=== PATIENT | female | born 1990 | race Caucasian/White ===

== ENCOUNTER 2021-05-03 11:41 | Emergency (ER) | payer OTHER, SELFPAY ==
--- NOTE | ~2021-05-03 | XR_ITS ---
EXAMINATION: XR chest 2V DATE: 05/03/2021 11:59 INDICATION: Cough. TECHNIQUE: Frontal and lateral views of the chest were obtained. COMPARISON: None. FINDINGS: The chest demonstrates clear lungs without pneumonia, pleural effusion, or pneumothorax. Th e heart size is normal. IMPRESSION: 1. No acute cardiopulmonary disease. Reviewed, dictated and finalized at location B. CE INVESTIGATOR
--- NOTE | 2021-05-03 11:44 | ED.URI ---
HPI - URI/Sore Throat General Chief Complaint: Upper Respiratory Infection Stated Complaint: cough and congestion Time Seen by Provider: 05/03/21 11:44 Source: patient and RN notes reviewed History of Present Illness HPI Narrative: Patient is a 30-year-old female who presents the urgent care with complaints of persistent cough and congestion since testing positive for Covid on April 20. Patient states that the day that she tested positive she was treated with steroids and azithromycin and did complete the medication as prescribed. Patient states that she has been using cough drops and taking Tylenol/ibuprofen for possible fevers at night. Patient denies of any nausea or vomiting. Denies any shortness of breath or chest pain. Patient states that she has since then tested herself for Covid which was negative. Patient's quarantine would have been up on April 30. No other acute complaints. No acute distress noted. Patient aware of the plan of care. Some parts of this dictation were generated by voice recognition software and may contain typographical and/or grammatical inaccuracies. Related Data Allergies Allergy/AdvReac Type Severity Reaction Status Date / Time No Known Allergies Allergy Unverified 05/03/21 11:52 Review of Systems Review of Systems: CONSTITUTIONAL: Denies fever, chills, or sweats. EYES: Denies visual changes, redness, or discharge. ENT: Reports of sinus congestion, rhinorrhea and postnasal drainage CARDIOVASCULAR: Denies chest pain, palpitations, or edema. RESPIRATORY: Reports a persistent harsh cough GASTROINTESTINAL: Denies abdominal pain, nausea, vomiting, or diarrhea. GENITOURINARY: Denies dysuria or hematuria. SKIN: Denies rash or itching. MUSCULOSKELETAL: Denies back pain, joint pain, or myalgia. NEUROLOGIC: Denies headache, numbness, or weakness. All other systems reviewed are negative, except as documented in HPI. PMFSH Comments At the time of my signature, I reviewed and agree with the nursing past medical, surgical, social, and family history. There is no relevant family history pertinent to the patient complaint. Exam Narrative: GENERAL: This is a well-nourished, well-developed patient, in no apparent distress. HEAD: normocephalic, atraumatic. EYES: PERRL. Sclera clear/white. Vision is grossly intact. EARS: External ears normal, auditory canals clear and without drainage, TMs normal without perforation. Hearing grossly intact. NOSE: External nose normal with no obvious nasal discharge, nares without redness, clear rhinorrhea. THROAT: Mucous membranes moist, posterior pharynx clear. Moderate postnasal drainage NECK: Neck supple CARDIOVASCULAR: Regular rate and rhythm without murmurs, gallops, or rubs. RESPIRATORY: Inspiratory wheezes throughout and coarse SKIN: warm, intact with no suspicious lesions or rash, good texture and turgor. NEURO: awake, alert, and oriented to person, place and time. There were no obvious focal neurologic abnormalities. EXTREMITIES: No clubbing, cyanosis, or edema. Course Vital Signs Vital signs: Vital Signs Temperature 99.2 F 05/03/21 11:47 Pulse Rate 115 H 05/03/21 11:47 Respiratory Rate 16 05/03/21 11:47 Blood Pressure 126/74 05/03/21 11:47 Pulse Oximetry 98 05/03/21 11:47 Temperature 99.2 F 05/03/21 11:47 Pulse Rate 115 H 05/03/21 11:47 Respiratory Rate 16 05/03/21 11:47 Blood Pressure 126/74 05/03/21 11:47 Pulse Oximetry 98 05/03/21 11:47 Reviewed MDM - URI/Sore Throat MDM Narrative Medical decision making narrative: Reviewed x-ray results with the patient. She is aware that chest x-ray was negative for any acute abnormality. Post Covid cough can last 6 to 8 weeks. Complete the steroid regimen as prescribed. Be sure to eat and drink with the medication. Use the inhaler as needed for coughing fits, wheezing or chest tightness. If you experience any increase in symptoms associated with severe shortness of breath, fev
[2021-05-03 11:47] VITALS: BP 126/74; PULSE 115; RESP 16; TEMP 37.3; O2SAT 98
== END 2021-05-03 12:23 | disposition home or self-care (01) ==
PROVIDERS: Emergency Provider Nurse Practitioner Family
DX: R05.3 Chronic cough (principal); U09.9 Post COVID-19 condition, unspecified
CPT/HCPCS: 71046; 99213; G0463

== ENCOUNTER 2021-08-28 18:21 | Emergency (ER) | payer OTHER, SELFPAY ==
[2021-08-28 18:24] VITALS: BP 122/76; PULSE 101; RESP 14; TEMP 37.3; O2SAT 97
--- NOTE | 2021-08-28 18:24 | ED.URI ---
HPI - URI/Sore Throat General Chief Complaint: Upper Respiratory Infection Stated Complaint: Cough chest congestion Time Seen by Provider: 08/28/21 18:24 Source: patient and RN notes reviewed History of Present Illness HPI Narrative: Patient is a 31-year-old female presents the urgent care with complaints of cough, congestion, fatigue and body aches. Patient states that it started yesterday. States that she has a history of pleurisy and feels that coming on . Patient denies of any fever or sore throat. Denies of any ill contacts. Patient has been taking allergy medication. No other acute complaints. No acute distress noted. Patient aware of the plan of care. Some parts of this dictation were generated by voice recognition software and may contain typographical and/or grammatical inaccuracies. Related Data Allergies Allergy/AdvReac Type Severity Reaction Status Date / Time No Known Allergies Allergy Verified 08/28/21 18:32 Review of Systems Review of Systems: CONSTITUTIONAL: Denies fever, chills, or sweats. Reports of fatigue EYES: Denies visual changes, redness, or discharge. ENT: Reports of rhinorrhea, congestion CARDIOVASCULAR: Denies chest pain, palpitations, or edema. RESPIRATORY: Reports of nonproductive cough without dyspnea GASTROINTESTINAL: Denies abdominal pain, nausea, vomiting, or diarrhea. GENITOURINARY: Denies dysuria or hematuria. SKIN: Denies rash or itching. MUSCULOSKELETAL: Denies back pain, joint pain. Reports of body aches NEUROLOGIC: Denies headache, numbness, or weakness. All other systems reviewed are negative, except as documented in HPI. PMFSH Comments At the time of my signature, I reviewed and agree with the nursing past medical, surgical, social, and family history. There is no relevant family history pertinent to the patient complaint. Exam Narrative: GENERAL: This is a well-nourished, well-developed patient, in no apparent distress. Appears fatigued HEAD: normocephalic, atraumatic. EYES: PERRL. Sclera clear/white. Vision is grossly intact. EARS: External ears normal, auditory canals clear and without drainage, TMs normal without perforation. Hearing grossly intact. NOSE: External nose normal with no obvious nasal discharge, nares without redness, clear to yellow rhinorrhea. THROAT: Mucous membranes moist, mild erythema noted posterior pharynx with moderate postnasal drainage NECK: Neck supple, non-tender without lymphadenopathy CARDIOVASCULAR: Regular rate and rhythm without murmurs, gallops, or rubs. RESPIRATORY: Dry persistent cough noted on exam. Clear to auscultation. Breath sounds equal bilaterally. No wheezes, rales, or rhonchi. SKIN: warm, intact with no suspicious lesions or rash, good texture and turgor. NEURO: awake, alert, and oriented to person, place and time. There were no obvious focal neurologic abnormalities. EXTREMITIES: No clubbing, cyanosis, or edema. Course Course Level of Care: Express Care Visit Vital Signs Vital signs: Vital Signs Temperature 99.1 F 08/28/21 18:24 Pulse Rate 101 H 08/28/21 18:24 Respiratory Rate 14 08/28/21 18:24 Blood Pressure 122/76 08/28/21 18:24 Pulse Oximetry 97 08/28/21 18:24 Temperature 99.1 F 08/28/21 18:32 Pulse Rate 101 H 08/28/21 18:32 Respiratory Rate 14 08/28/21 18:32 Blood Pressure 122/76 08/28/21 18:32 Pulse Oximetry 97 08/28/21 18:32 Reviewed MDM - URI/Sore Throat MDM Narrative Medical decision making narrative: Reviewed lab results with the patient. She is aware that flu swab was negative. Advised patient to complete the steroid regimen as prescribed. Be sure to eat and drink with medication. Use the inhaler as needed for wheezing and coughing fits. Use Tylenol/ibuprofen as needed. May continue allergy medication in conjunction with Flonase nasal spray and Mucinex. Increase your water intake and rest. Use a humidifier at night and do not sleep with the windows open. Follow-up in the
[2021-08-28 18:32] VITALS: BP 122/76; PULSE 101; RESP 14; TEMP 37.3; O2SAT 97
== END 2021-08-28 18:57 | disposition home or self-care (01) ==
PROVIDERS: Emergency Provider Nurse Practitioner Family
DX: J40 Bronchitis, not specified as acute or chronic (principal); Z86.16 Personal history of COVID-19
CPT/HCPCS: 87804; 99213; G0463

== ENCOUNTER 2021-09-05 11:10 | Emergency (ER) | payer OTHER, SELFPAY ==
--- NOTE | ~2021-09-05 | XR_ITS ---
EXAMINATION: XR chest 2V EXAM DATE: 09/05/2021 11:35 INDICATION: Cough , sob x 1-2 weeks. TECHNIQUE: Frontal and lateral projections of the chest obtained and reviewed. Comparison is made to prior examination from 05/03/2021. FINDINGS: The lungs are clear. There are no pleural effusions. The cardiomediastinal silhouette is within normal limits. There is no pneumothorax suspected. The bones and soft tissues are unremarkab le. IMPRESSION: No acute cardiopulmonary findings. Reviewed, dictated and finalized at location B.
[2021-09-05 11:19] VITALS: BP 138/68; PULSE 98; RESP 20; TEMP 37.1; O2SAT 99
--- NOTE | 2021-09-05 11:20 | ED.URI ---
HPI - URI/Sore Throat General Chief Complaint: Upper Respiratory Infection Stated Complaint: trouble breathing, cough,congestion Source: patient and RN notes reviewed Mode of arrival: ambulatory Limitations: no limitations History of Present Illness MD elicited complaint: cough and sore throat Related Data Allergies Allergy/AdvReac Type Severity Reaction Status Date / Time No Known Allergies Allergy Verified 08/28/21 18:32 Review of Systems Review of Systems: CONSTITUTIONAL: Denies malaise, chills, sweats, or fever. EYES: Denies visual changes, redness, or discharge. ENT: Reports rhinorrhea, congestion, sinus pain, otalgia and sore throat. CARDIOVASCULAR: Denies chest pain, palpitations, or edema. RESPIRATORY: Reports cough. Denies dyspnea. GASTROINTESTINAL: Denies abdominal pain, nausea, vomiting, diarrhea SKIN: Denies rash or itching. MUSCULOSKELETAL: Denies myalgia. NEUROLOGIC: Denies headache. All systems reviewed & are unremarkable except as noted in HPI and below PMFSH Comments At time of signature, agree with nursing past medical, surgical, social and family history. There is no relevant family history pertinent to the presenting complaint Exam Narrative: GENERAL: Well-appearing, well-nourished, and in no acute distress. HEAD: Normocephalic EYES: PERRLA, conjunctivae clear ENT: Nares clear, turbinates edematous and erythematous, clear discharge. Mucous membranes moist. TM pearly richter with dull light reflex bilaterally; no tragal tenderness. Oropharynx not erythematous without lesions. Tonsils not enlarged and without exudate, no drooling, no hoarseness, no trismus, uvula midline. NECK: Supple. No lymphadenopathy CHEST: Clear to auscultation, breath sounds equal. No wheezing, rhonchi, rales, or stridor. No acute respiratory distress, cough noted, conversational dyspnea noted HEART: Regular rate and rhythm. No murmur heard. SKIN: Warm, dry, no rash. NEURO: Alert and oriented x3. PSYCH: Normal mood and affect Course Course Emergency Course: Patient advised to follow-up with primary care provider return guarding ongoing cough, shortness of breath. Patient is aware of diagnosis, understands and agrees to treatment plan. Anticipatory guidance given. Patient agrees to follow-up as directed and is aware of reasons to seek care at the emergency department. Portions of this record may have been created with voice recognition software Level of Care: Express Care Visit Reevaluation(s) Reevaluation #1: Patient reports symptoms improved after breathing treatment she feels less short of breath feels easier. No conversational dyspnea noted Date: 09/05/21 Time: 12:06 Vital Signs Vital signs: Reviewed. MDM - URI/Sore Throat MDM Narrative Medical decision making narrative: Differential diagnosis considered: Novak virus, strep pharyngitis, allergic rhinitis, upper respiratory tract infection, sinusitis, rhinosinusitis, nasopharyngitis. viral pharyngitis, otitis media, otitis externa, pneumonia, bronchitis, viral cough syndrome, viral syndrome, and influenza. Exam findings show no acute concerns or changes; patient is non-toxic appearing and is in no distress. Patient is appropriate for outpatient treatment and follow-up. Lab Data Attestation: I reviewed the patient's lab results. Imaging Data My impression: My x-rays taken Radiologist's impression: EXAMINATION: XR chest 2V EXAM DATE: 09/05/2021 11:35 INDICATION: Cough , sob x 1-2 weeks. TECHNIQUE: Frontal and lateral projections of the chest obtained and reviewed. Comparison is made to prior examination from 05/03/2021. FINDINGS: The lungs are clear. There are no pleural effusions. The cardiomediastinal silhouette is within normal limits. There is no pneumothorax suspected. The bones and soft tissues are unremarkable. IMPRESSION: No acute cardiopulmonary findings. Critical Care Time Critical Care Time Critical Care Time: No Discharge Plan Discharge Clinica
[2021-09-05] MEDS: ALBUTEROL SULFATE NEB 2.5 MG/3 ML INH INHALATION (11:56)
[2021-09-05] MEDS: IPRATROPIUM BR 0.02% INH SOLN 0.5 MG/2.5 ML VIAL INHALATION (11:56)
== END 2021-09-05 12:27 | disposition home or self-care (01) ==
PROVIDERS: Emergency Provider Nurse Practitioner
DX: R05.9 Cough, unspecified (principal); R06.02 Shortness of breath; Z86.16 Personal history of COVID-19
CPT/HCPCS: 71046; 94640; 99213; G0463

== ENCOUNTER 2021-11-01 08:21 | Emergency (ER) | payer OTHER, SELFPAY ==
--- NOTE | 2021-11-01 08:25 | ED.NAVMDI ---
HPI - Nausea/Vomiting/Diarrhea General Chief complaint: Nausea/Vomiting/Diarrhea Stated complaint: diahrrea nausea Time Seen by Provider: 11/01/21 08:25 Mode of arrival: ambulatory Limitations: no limitations History of Present Illness HPI Narrative: Patient is a 31-year-old female who presents the urgent care with complaints of diarrhea, nausea and vomiting. Patient states the diarrhea started Saturday after she ate pulled pork nachos at around 2 PM. Patient states she has had several loose stools in last 24 hours. States that she did not vomit until this morning has vomited twice. Patient still complains of nausea but denies of abdominal pain. States that her main concern is that she called off work and needs a work note. Patient does not get anything [id number] for her symptoms. Denies any fever. No other acute complaints. No acute distress noted. Patient aware of the plan of care. Some parts of this dictation were generated by voice recognition software and may contain typographical and/or grammatical inaccuracies. Related Data Allergies Allergy/AdvReac Type Severity Reaction Status Date / Time No Known Allergies Allergy Verified 11/01/21 08:27 Review of Systems Review of Systems: CONSTITUTIONAL: Denies fever, chills, or sweats. EYES: Denies visual changes, redness, or discharge. ENT: Denies rhinorrhea, congestion, sore throat, or otalgia. CARDIOVASCULAR: Denies chest pain, palpitations, or edema. RESPIRATORY: Denies cough or dyspnea. GASTROINTESTINAL: Reports of nausea, vomiting and diarrhea GENITOURINARY: Denies dysuria or hematuria. SKIN: Denies rash or itching. MUSCULOSKELETAL: Denies back pain, joint pain, or myalgia. NEUROLOGIC: Denies headache, numbness, or weakness. All other systems reviewed are negative, except as documented in HPI. PMFSH Comments At the time of my signature, I reviewed and agree with the nursing past medical, surgical, social, and family history. There is no relevant family history pertinent to the patient complaint. Exam Narrative: GENERAL: This is a well-nourished, well-developed patient, in no apparent distress. HEAD: normocephalic, atraumatic. EYES: PERRL. Sclera clear/white. Vision is grossly intact. EARS: External ears normal NOSE: External nose normal with no obvious nasal discharge, nares without redness, no rhinorrhea. THROAT: Mucous membranes moist NECK: Neck supple CARDIOVASCULAR: Regular rate and rhythm without murmurs, gallops, or rubs. RESPIRATORY: Clear to auscultation. Breath sounds equal bilaterally. No wheezes, rales, or rhonchi. GASTROINTESTINAL: Abdomen soft, non-tender, nondistended. Bowel sounds are active. No guarding. SKIN: warm, intact with no suspicious lesions or rash, good texture and turgor. NEURO: awake, alert, and oriented to person, place and time. There were no obvious focal neurologic abnormalities. EXTREMITIES: No clubbing, cyanosis, or edema. BACK: Negative CVA tenderness Course Course Level of Care: Express Care Visit Vital Signs Vital signs: Vital Signs Temperature 98.9 F 11/01/21 08:26 Pulse Rate 103 H 11/01/21 08:26 Respiratory Rate 16 11/01/21 08:26 Blood Pressure 118/81 11/01/21 08:26 Pulse Oximetry 98 11/01/21 08:26 Oxygen Delivery Room Air 11/01/21 08:26 Temperature 98.9 F 11/01/21 08:26 Pulse Rate 103 H 11/01/21 08:26 Respiratory Rate 16 11/01/21 08:26 Blood Pressure 118/81 11/01/21 08:26 Pulse Oximetry 98 11/01/21 08:26 Oxygen Delivery Room Air 11/01/21 08:26 Reviewed MDM - Nausea/Vomiting/Diarrhea MDM Narrative Medical decision making narrative: Advised patient to use Pepto [id number] for upset stomach. Use the Zofran as needed for nausea. Do not use excessive amounts of Imodium or stool softeners. Eat a bland diet for the next 2 to 3 days avoiding greasy, fried or fatty foods. If you develop any increase in symptoms associated persistent nausea/vomiting in conjunction
[2021-11-01 08:26] VITALS: BP 118/81; PULSE 103; RESP 16; TEMP 37.2; O2SAT 98
== END 2021-11-01 08:52 | disposition home or self-care (01) ==
PROVIDERS: Emergency Provider Nurse Practitioner Family
DX: K52.9 Noninfective gastroenteritis and colitis, unspecified (principal)
CPT/HCPCS: 99211; G0463

== ENCOUNTER 2022-05-05 12:25 | Emergency (ER) | payer SELFPAY ==
--- NOTE | ~2022-05-05 | XR_ITS ---
EXAM: XR foot LT min 3V DATE: 05/05/2022 14:54 HISTORY: NKI, DORSAL SWELLING, POSS PAIN BUT PT HAS NERVE DAMAGE . COMPARISON: None available. FINDINGS: Normal mineralization. No fracture or dislocation. No lytic or blastic lesion. Joint space s are maintained. Mild Achilles and plantar enthesopathy. No erosion or periosteal change. Soft tissu es within normal limits. IMPRESSION: No acute osseous finding in the left foot. Reviewed, dictated and finalized at location K. CONSULTING DIRECTOR
[2022-05-05 12:41] VITALS: BP 126/75; PULSE 88; RESP 16; TEMP 36.8; O2SAT 100
--- NOTE | 2022-05-05 14:53 | PC.NURSE ---
PT DECLINED WHEELCHAIR AND ICE FOR COMFORT
--- NOTE | 2022-05-05 15:11 | ED.LOWEXIN ---
HPI - Extremity Injury (Lower) General Chief Complaint: Extremity Injury, Lower Stated Complaint: left foot swollen Time Seen by Provider: 05/05/22 15:10 Source: RN notes reviewed and old records reviewed Mode of arrival: ambulatory Limitations: no limitations History of Present Illness HPI Narrative: 31-year-old female who presents to [facility] with no complaints of injuries to her left foot but swelling for one week duration to dorsal and medial aspect of her foot. Patient reports that she is on her feet 10 hours daily 4 days a week with no known injury to her left foot. Patient reports that she has had 3 back surgeries and she does have some nerve injury to her left foot. Patient denies any acute pain, has used Ibuprofen and also has used ice to her left foot. MD complaint: other (swelling to dorsal and medial lef foot) Onset (ago): week(s) (1) Treatments prior to arrival: cold therapy and NSAIDS Related Data Home Medications Medication Instructions Recorded Confirmed fluoxetine 20 mg capsule 20 mg PO DAILY 05/05/22 05/05/22 Allergies Allergy/AdvReac Type Severity Reaction Status Date / Time No Known Allergies Allergy Verified 05/05/22 14:18 Review of Systems Review of Systems: CONSTITUTIONAL: Denies fever, chills, or sweats. CARDIOVASCULAR: Denies chest pain, palpitations, or edema. RESPIRATORY: Denies cough or dyspnea. SKIN: Denies rash or itching. Denies laceration or abrasions MUSCULOSKELETAL: Reports swelling to the left dorsal and medial aspect of her left foot with no known injury NEUROLOGIC: Denies numbness, or weakness. All systems reviewed & are unremarkable except as noted in HPI and below PMFSH Past Medical History Medical History (Updated 05/10/22 @ 14:21 by Anum Polanco NP) Ankle fracture, left Anxiety and depression Closed arm fracture COVID-19 04/30 Fractured coccyx Shoulder fracture, right Surgical History Surgical History (Updated 05/10/22 @ 14:13 by Anum Polanco NP) History of lumbar surgery x3 History of salpingectomy Social History Social History (Updated 05/10/22 @ 14:08 by Anum Polanco NP) Smoking packs per day: 1 Smoking cigarettes per day: 20.0 Years smoked: 10 Smoking pack-years: 10.00 Smoking status: Current every day smoker Gender identity (if verbalized by the patient): Female Comments At time of signature, agree with nursing past medical, surgical, social and family history. There is no relevant family history pertinent to the presenting complaint Exam Narrative: GENERAL: Well-appearing, well-nourished, and in no acute distress. HEAD: Normocephalic, atraumatic. EYES: PERRLA and EOMI. ENT: Nares clear, no rhinorrhea or epistaxis. Mucous membranes moist. NECK: Supple.no lymphadenopathy CHEST: Clear to auscultation. No respiratory distress. HEART: Regular rate and rhythm. No murmur heard. Normal peripheral pulses. ABDOMEN: Soft, nontender, nondistended, normal active bowel sounds. EXTREMITIES: Normal range of motion. edema noted to left dorsal and medial foot with no known injury, full ROM of left foot with good pulses and brisk capillary refill. SKIN: Warm, dry, no rash. NEURO: No focal deficits. Alert and oriented x3. Course Course Emergency Course: Patient is aware of diagnosis, understands and agrees to treatment plan. Anticipatory guidance given. Patient agrees to follow-up as directed and is aware of reasons to seek care at the emergency department. Portions of this record may have been created with voice recognition software Level of Care: Express Care Visit Vital Signs Vital signs: Vital Signs Temperature 36.8 C 05/05/22 12:41 Pulse Rate 88 05/05/22 12:41 Respiratory Rate 16 05/05/22 12:41 Blood Pressure 126/75 05/05/22 12:41 Pulse Oximetry 100 05/05/22 12:41 Oxygen Delivery Room Air 05/05/22 12:41 Temperature 36.8 C 05/05/22 12:41 Pulse Rate 88 05/05/22 12:41 Respiratory Rate 16
== END 2022-05-05 15:30 | disposition home or self-care (01) ==
PROVIDERS: Emergency Provider Registered Nurse
DX: M79.89 Other specified soft tissue disorders (principal); M79.672 Pain in left foot
CPT/HCPCS: 73630; 99213; G0463

== ENCOUNTER 2024-02-11 18:51 | Emergency (ER) | payer OTHER, SELFPAY ==
[2024-02-11 19:03] VITALS: PULSE 89; RESP 18; TEMP 36.2; O2SAT 100
--- NOTE | 2024-02-15 18:06 | ED.EAR ---
HPI - Ear Problem General Chief complaint: Ear Stated complaint: RT Ear Pain Time Seen by Provider: 02/11/24 19:42 Source: patient, RN notes reviewed and old records reviewed Mode of arrival: ambulatory Limitations: no limitations History of Present Illness HPI Narrative: 33-year-old female to [facility] for complaint of right ear pain for 2 weeks with recent right facial pain. Patient denies attempting to treat at home. Patient denies sore throat, headache, fever, sinus pain, nasal congestion, GI complaints, Shortness of breath, difficulty swallowing. Patient able to tolerate fluids by mouth. Patient resting in exam room uncomfortably in no acute distress. Respirations even and unlabored. Related Data Allergies Allergy/AdvReac Type Severity Reaction Status Date / Time No Known Allergies Allergy Verified 05/05/22 14:18 Review of Systems Review of Systems: All systems reviewed & are unremarkable except as noted in HPI and below Constitutional: Constitutional: Reports no additional constitutional complaints Eyes: Eyes: Reports no additional eye complaints ENT: Reports as per HPI, Reports otalgia ( Right) and Reports facial pain ( right) Cardiovascular: Cardiovascular: Reports no additional cardiovascular complaints, Denies chest pain and Denies dyspnea Respiratory: Respiratory: Reports no additional respiratory complaints, Denies cough and Denies dyspnea Musculoskeletal: Musculoskeletal: Reports no additional musculoskeletal complaints Neurologic: Reports system reviewed and no additional complaints, except as documented Psychiatric: Psychiatric: Reports no additional psychiatric complaints PMFSH Past Medical History Medical History Ankle fracture, left Anxiety and depression Closed arm fracture COVID-19 04/30 Fractured coccyx Shoulder fracture, right Surgical History Surgical History History of lumbar surgery x3 History of salpingectomy Social History Social History Smoking packs per day: 1 Smoking cigarettes per day: 20.0 Years smoked: 10 Smoking pack-years: 10.00 Smoking status: Current every day smoker Gender identity (if verbalized by the patient): Female Comments At the time of my signature, I reviewed and agree with the nursing past medical, surgical, social, and family history. There is no relevant family history pertinent to the patient complaint. Exam Const: General: cooperative, healthy appearing, no acute distress, well developed, alert, uncomfortable, well groomed and well nourished Nutritional Appearance: well nourished Orientation/consciousness: patient oriented x3 Limitations: no limitations HENMT: Head: normal to inspection Ears: external ears normal, Abnormal EAC present erythema on the right and EAC tenderness on the right and TM abnormal bulging on the right, erythematous on the right and with fluid behind the TM on the right Face/Nose/Sinus: Normal external nose present, Normal nares present, No erythema and No edema Face and sinus: normal facial exam, no erythema and no edema Mouth: Yes Normal oral and palatal mucosa present Eyes: General: appearance normal, both eyes and all related structures Neck: Neck: normal visual inspection, full ROM and no meningeal signs Lymphatic: no lymphadenopathy noted and no lymphedema noted Chest: Chest palpation & inspection: normal inspection of the chest Resp: Effort & Inspection: normal respiratory effort and able to speak in complete sentences Cardio: Jugular venous distension: no JVD Rate: regular rate Rhythm: regular rhythm Back/Spine/Pelvis: Cervical Spine: cervical ROM normal Skin: General skin exam: normal color, no rashes or lesions noted and turgor normal Neuro: General: patient oriented x3, gait normal, moves all extremitie
== END 2024-02-11 19:53 | disposition home or self-care (01) ==
PROVIDERS: Emergency Provider Nurse Practitioner Family
DX: H66.91 Otitis media, unspecified, right ear (principal); F17.210 Nicotine dependence, cigarettes, uncomplicated; Z86.16 Personal history of COVID-19
CPT/HCPCS: 99213; G0463

== ENCOUNTER 2024-03-28 08:55 | Emergency (ER) | payer OTHER, SELFPAY ==
[2024-03-28 09:16] VITALS: BP 104/78; PULSE 95; RESP 16; TEMP 36.6; O2SAT 99
--- NOTE | 2024-03-28 09:36 | ED.URI ---
HPI - URI/Sore Throat General Chief Complaint: Ear Stated Complaint: Ear Pain Time Seen by Provider: 03/28/24 09:30 Source: patient and RN notes reviewed Mode of arrival: ambulatory Limitations: no limitations History of Present Illness HPI Narrative: Patient presents today complaining of severe right ear pain the past 2-3 hours with decreased hearing. Denies drainage. She has tried ibuprofen without relief. States she already take Sudafed on a semi-regular basis. Reports that 1 of her doctors has her on a steroid nasal spray that she does not take consistently. Denies any additional symptoms Related Data Allergies Allergy/AdvReac Type Severity Reaction Status Date / Time No Known Allergies Allergy Verified 03/12/24 09:13 Review of Systems Review of Systems: CONSTITUTIONAL: Denies body aches, fever, chills, or sweats. EYES: Denies visual changes, redness, or discharge. ENT: Denies rhinorrhea, congestion, sore throat. + right ear pain, decreased hearing CARDIOVASCULAR: Denies chest pain, palpitations, or edema. RESPIRATORY: Denies cough or dyspnea. GASTROINTESTINAL: Denies abdominal pain, nausea, vomiting, or diarrhea. GENITOURINARY: Denies dysuria or hematuria. SKIN: Denies rash, itching, or wounds. MUSCULOSKELETAL: Denies back pain, joint pain, or myalgia. NEUROLOGIC: Denies headache, numbness, tingling, or weakness. PSYCH: Denies depression or anxiety. [facility] Past Medical History Medical History Ankle fracture, left Anxiety and depression Closed arm fracture COVID-04/30 Fractured coccyx Shoulder fracture, right Surgical History Surgical History History of lumbar surgery x3 History of salpingectomy Social History Social History Smoking packs per day: 1 Smoking cigarettes per day: 20.0 Years smoked: 10 Smoking pack-years: 10.00 Smoking status: Current every day smoker Alcohol intake: current Substance use: never Gender identity (if verbalized by the patient): Female Comments At time of signature, I have reviewed and agree with nursing past medical, surgical, social and family history unless otherwise noted. Please see nursing chart for further information. There is no relevant family history pertinent to the presenting complaint Exam Narrative: GENERAL: Well-appearing, well-nourished, and tearful, [id number] pain distress HEAD: Normocephalic, atraumatic. EYES: EOMI. PERRL. No redness or drainage. Conjunctivae normal. ENT: Mucous membranes pink and moist. Rhinorrhea due to crying. Left TM and external ear normal. Right TM and canal normal.. NECK: Normal AROM. Supple. No lymphadenopathy. CHEST: No respiratory distress. MUSCULOSKELETAL: No bony tenderness. EXTREMITIES: Normal range of motion. No edema. SKIN: Warm, dry, no rash. Capillary refill normal. Normal skin turgor. NEURO: No focal deficits. Alert and oriented x3. Gait steady. PSYCH: Normal affect. No signs of depression or anxiety. Course Course Level of Care: Express Care Visit Vital Signs Vital signs: Vital Signs Temperature 98 F 03/28/24 09:16 Pulse Rate 95 03/28/24 09:16 Respiratory Rate 16 03/28/24 09:16 Blood Pressure 104/78 03/28/24 09:16 Pulse Oximetry 99 03/28/24 09:16 Temperature 98 F 03/28/24 09:16 Pulse Rate 95 03/28/24 09:16 Respiratory Rate 16 03/28/24 09:16 Blood Pressure 104/78 03/28/24 09:16 Pulse Oximetry 99 03/28/24 09:16 Reviewed MDM - URI/Sore Throat MDM Narrative Medical decision making narrative: Patient's right ear exam is grossly normal, but she is objectively in pain and holding her right ear. Will start her on amoxicillin and ciprodex to see if either are helpful. Recommend ENT follow up if symptoms persist. Anticipatory guidance given
== END 2024-03-28 09:47 | disposition home or self-care (01) ==
PROVIDERS: Emergency Provider Nurse Practitioner; PCP Nurse Practitioner Family
DX: H92.01 Otalgia, right ear (principal); F17.210 Nicotine dependence, cigarettes, uncomplicated; Z86.16 Personal history of COVID-19
CPT/HCPCS: 99213; G0463

== ENCOUNTER 2024-04-13 10:44 | Outpatient (CLI) | payer OTHER, SELFPAY ==
--- NOTE | ~2024-04-13 | XR_ITS ---
Right Shoulder Technique: AP and scapular Y views were obtained. Clinical History: Pain Findings: No fracture or dislocation is seen. Osseous alignment is anatomic. The glenohumeral and acr omioclavicular joint spaces are preserved. Soft tissues are unremarkable. Impression: Unremarkable right shoulder radiographs. Reviewed, dictated and finalized at [facility]. [facility] Impression: Unremarkable right shoulder radiographs.
== END 2024-04-13 10:45 | disposition home or self-care (01) ==
PROVIDERS: PCP Nurse Practitioner Family; Visit Provider Nurse Practitioner Family
DX: M25.511 Pain in right shoulder (principal)
CPT/HCPCS: 73030

== ENCOUNTER 2024-04-20 08:02 | Outpatient (RCR) | payer OTHER, SELFPAY ==
--- NOTE | 2024-04-20 09:00 | PTOPEVAL1 ---
Assessment and note entered by Brendan Banda Evaluation Information Assessment Status Evaluation ICD-10 Condition Codes (PT) M25.511 Onset 04/04/24 Subjective Information Pt. reports that she has had shoulder stiffness since she broke her shoulder in 2019. She states that she did not have surgery due to Covid. She reports she developed pain about 2 weeks ago. She describes pain on the top of the right shoulder. She states that she does have frequent popping in the shoulder. She states that she cannot lift her arm higher than her shoulder and has pain reaching behind her back. She states that she cannot lay on the right shoulder without a pain increase. She reports that she has trouble straightening the arm. She reports that her goal is to decrease her shoulder pain and improve her mobility. Reported Pain Level Pain Score 0: Self Report Assessment PT Clinical Summary Pt. is a 33 year old female who enters the clinic with right shoulder pain. Objective findings are consistent with impingement syndrome on this date. She currently presents with impaired ROM, impaired strength and pain with shoulder movement. Continued skilled PT is indicated in order to improve these areas to allow the pt. to be able to complete all overhead activities and IADL's with less pain. Plan of Care Interventions Electrical Stimulation,Hot Pack/Cold Pack,Manual Therapy,Neuro Re-education,Patient/Caregiver Educati,Therapeutic Activities,Therapeutic Exercise PT Services Indicated Yes Treatment Frequency and 2x/week x 10 visits Duration These treatments will address the objective and functional deficits as defined above. The patient will be advanced safely and appropriately in order for the patient to progress towards his/her prior level of function. Additional exercises will be introduced and as well as a comprehensive home exercise program upon discharge, if needed, ?to ensure carryover of functional gains achieved in the clinic. This treatment plan has been reviewed and agreement upon by the patient.
--- NOTE | 2024-05-06 14:02 | PCPTNOTE ---
Patient did not show up for scheduled appointment this date.
--- NOTE | 2024-06-12 15:13 | OPREHPOC ---
Outpatient Therapy Plan of Care This is a Multidisciplinary Plan of Care that may contain components documented by all disciplines (PT, OT, and ST.) PT Problem 1 PT Problem #1 Knowledge Deficit PT Goal 1 Goal / Goal Update Pt. will be independent with a HEP addressing postural awareness and strength Target Visit 2 PT Problem 2 PT Problem #2 Impaired Range of Motion PT Goal 1 Goal / Goal Update Pt. will demonstrate 160 degrees active right shoulder flexion Pt. will reach to the mid thoracic region with the right u.e. for combined IR and extension Pt. will be able to lift 5# object overhead to 160 degrees flexion with the right u.e. for 10 reps without pain. PT Problem 3 PT Problem #3 Impaired Strength PT Goal 1 Goal / Goal Update Pt. will demonstrate 5/5 gross proximal right u.e. strength. Target Visit 10 PT Problem 4 PT Problem #4 Impaired Functional Mobility PT Goal 1 Goal / Goal Update Pt. will be able to sleep through the night without pain disturance. Target Visit 10
--- NOTE | 2024-06-12 15:13 | PTOPDC ---
Assessment and note entered by JT File, PT Evaluation Information Assessment Status Discharge - Pt Not Present ICD-10 Condition Codes (PT) Pain in right shoulder M25.511 Onset 04/04/24 Subjective Information Pt. reports that she has had shoulder stiffness since she broke her shoulder in 2019. She states that she did not have surgery due to Covid. She reports she developed pain about 2 weeks ago. She describes pain on the top of the right shoulder. She states that she does have frequent popping in the shoulder. She states that she cannot lift her arm higher than her shoulder and has pain reaching behind her back. She states that she cannot lay on the right shoulder without a pain increase. She reports that she has trouble straightening the arm. She reports that her goal is to decrease her shoulder pain and improve her mobility. Assessment PT Clinical Summary mrs. travis has not been to skilled PT in over a month. she has been called several times with no return calls to finish out her POC. she will be DC 'd from skilled PT services today, and all progress towards goals is available on her most recent evaluation/note. Plan of Care PT Services Indicated Yes
== END 2024-05-05 11:00 | disposition home or self-care (01) ==
LOC: CHSPT 08:02
PROVIDERS: Visit Provider Nurse Practitioner Family
DX: M25.511 Pain in right shoulder (principal)
CPT/HCPCS: 97110; 97161

== ENCOUNTER 2025-01-22 12:35 | Outpatient (CLI) | payer OTHER, SELFPAY ==
--- OUTSIDE RECORDS SUMMARY | 2025-01-22 12:40 | XMS_ITS | Clinical Summary ---
Author Organization [facility] Physician Office Building [address] [place] [id number] Care Team Providers Care Computer Information Systems Instructor Name Role Phone Alaina Teague DO Unavailable [phone] Allergies No known active allergies Medications ondansetron ODT (ZOFRAN-ODT) 4 mg disintegrating tablet DISSOLVE 1 TABLET ON THE TONGUE EVERY 8 HOURS 2 Active FLUoxetine (PROzac) 20 mg capsuleIndications: Mild episode of recurrent major depressive disorder,Generalize d anxiety disorder TAKE 1 CAPSULE BY MOUTH EVERY DAY 90 capsule 2 Active nicotine (NICODERM CQ) 14 mgIndications:Smoki ng Cessation Place 1 patch on the skin daily Active Active Problems Problem Noted Date Diagnosed Date Preventative health care 10/16/2022 Assessment & Plan (10/16/2022 12:56 PM CDT): - Acute concerns: see plan under A/P for new/acute conditions - Mental health: stable, has known anxiety and depression, on medications - Dental health: Recommend regular dental care and cleaning. Discussed importance of regular tooth brushing, flossing, and dental visits. - Nutrition: Recommend moderation in sodium/caffeine intake, saturated fat and cholesterol, caloric balance, sufficient intake of fresh fruits, vegetables - Exercise: Recommend regular physical exercise - Immunizations: Age and sex appropriate immunizations reviewed and offered - Cervical Cancer screening: up to date, follows with Dr. 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 Clinical correlation is recommended. Referral placed to hand surgery Assessment & Plan (01/21/2023 11:08 AM CDT): - subacute, reports over left hand - no neck pain with intact shoulder ROM - examination on last visit was inconclusive - differential includes carpal tunnel syndrome, ulnar tunnel syndrome and less likely cervical radiculopathy - recommend wearing a wrist brace over night x 30 days on last visit which she did for 2 weeks and discontinues - obtained lab work as well as shown below - obtain EMG/NCV for further evaluation Lab Results Component Value Date VITB12 440 12/17/2022 Lab Results Component Value Date FOLATE 11.7 12/17/2022 Lab Results Component Value Date TSH 0.54 12/17/2022 Assessment & Plan (10/16/2022 12:58 PM CDT): - subacute, reports over left hand - examination is not specific - recommend wearing a wrist brace over night x 30 days - no neck pain with intact shoulder ROM - differential includes carpal tunnel syndrome, ulnar tunnel syndrome and less likely cervical radiculopathy - obtain lab work as well Mild episode of recurrent major depressive disor al 01/15/2022 Assessment & Plan (10/16/2022 12:55 PM CDT): - chronic, controlled - has anxiety and coexisting depression history - currently on Fluoxetine 20 mg daily - continue current therapy Assessment & Plan (01/15/2022 5:19 PM CDT): Trial of fluoxetine. Close follow-up recommended. Strongly encouraged counseling. If you feel you will be a harm to herself or to others please call 911 and go to nearest emergency room. Generalized anxiety disorder 01/15/2022 Assessment & Plan (01/21/2023 10:40 AM CDT): - chronic, controlled - has anxiety and coexisting depression history - currently on Fluoxetine 20 mg daily - continue current therapy Assessment & Plan (10/16/2022 12:55 PM CDT): - chronic, controlled - has anxiety and coexisting depression history - currently on Fluoxetine 20 mg daily - continue current therapy Assessment & Plan (01/15/2022 5:19 PM CDT): Duloxetine started, will also give a trial of lorazepam for temporary use for her anxiety disorder. Strongly encouraged counseling. Close follow-up recommended. Thai's neuroma of left foot 06/28/2021 Overview (06/28/2021): new, not at goal, discussed treatment options, first line would be metatarsal pads and if not we can schedule her for steroid injections Tobacco use disorder 12/28/2020 Assessment & Plan (01/21/2023 10:44 AM CDT): Social History Tobacco Use Smoking Status Every Day Packs/day: 1.00 Years: 14.00 Pack years: 14.00 Types: Cigarettes Start date: 06/10/2006 Smokeless Tobacco Never - chronic condition, not at goal but improved - assessed patient readiness for tobacco smoking cessation - discussed the importance of tobacco smoking cessation with goal of being tobacco free - doing nicotine patch and has cut it down by 1/2 --> next refill should be 14 mg patch, keep it up Assessment & Plan (10/16/2022 10:51 AM CDT): Social History Tobacco Use Smoking Status Every Day Packs/day: 1.00 Years: 14.00 Pack years: 14.00 Types: Cigarettes Start date: 06/10/2006 Smokeless Tobacco Never Vaping Use Vaping Status Never Used - chronic condition, not at goal - assessed patient readiness for tobacco smoking cessation - discussed the importance of tobacco smoking cessation with goal of being tobacco free Assessment & Plan (12/28/2020 3:17 PM CDT): Social History Tobacco Use Smoking Status Current Every Day Smoker Packs/day: 1.00 Years: 14.00 Pack years: 14.00 Types: Cigarettes Start date: 06/10/2006 Smokeless Tobacco Never Used History of seizures as a child 12/28/2020 Assessment & Plan (12/28/2020 3:18 PM CDT): - had tehm when she was young - when she was 14 and 15 - last sizure - tested and after all was studies were negative, told it was anxiety and mental health problem History of depression 12/28/2020 Assessment & Plan (12/28/2020 3:19 PM CDT): - in complete remission - used to be on medication, off for several years History of arthrodesis 03/13/2011 Bulging lumbar disc 01/10/2011 Resolved Problems Problem Noted Date Diagnosed Date Resolved Date Pelvic mass 12/29/2020 10/16/2022 Overview (12/29/2020): Noted on CT 12/29/2020: IMPRESSION: Large cystic pelvic mass. Surgical consultation recommended. There is mass effect on the sigmoid colon. Closed fracture of left distal radius 07/21/2020 10/16/2022 Immunizations Immunization Administration Dates Next Due Influenza, Unspecified 10/16/2022(Deferr ed: Patient Refused),03/10/2021(Deferred: Patient Refused),03/10/2020(Deferred: Patient Refused),03/10/2020(Deferred: Patient Refused) Surgical History Surgery Date Site/Laterality Comments BACK SURGERY DIAGNOSTIC LAPAROSCOPY Medical History Medical History Date Comments No pertinent past medical history Family History Medical History Relation Name Comments No Known Problems Father No Known Problems Mother Relation Name Status Comments Father Alive Mother Alive Social History Tobacco Use Types Packs/Day Years Used Date Smoking Tobacco: Every Day Cigarettes 1 18.6 Started: 06/10/2006 Smokeless Tobacco: Never Tobacco Cessation:Ready to Q uit: No; Counseling Given: Yes AUDIT-C Answer Date Recorded Q1: How often do you have a drink containing alc ohol? 2-4 times a month 02/09/2021 Q2: How many drinks containi ng alcohol do you have on a typical day when you are drinking? 5 or 6 02/09/2021 Frequency of Binge Drinking Not on file 07/2020 PHQ-2 Answer Date Recorded PHQ-2 Total Score (If total score is 3 or more points, staff should administer the PHQ-9) 0 01/21/2023 Comments No Sex and Gender Information Value Date Recorded Sex Assigned at Not on file Legal Sex Female 10:37 AM RETAIL SOLAR ADVISOR Gender Identity Female 02/14/2021 10:37 PM CDT Sexual Orientation Straight 02/14/2021 10 :37 PM CDT Occupation Industry Job Start Date Job End Date Not on file Not on file Not on file Not on file Obstetrics History Last Filed Vital Signs Vital Sign Reading Time Taken Comments Blood Pressure 108/82 01/21/2023 10:21 AM CDT Pulse 84 01/21/2023 10:21 AM CDT Temperature 36.8 C (98.2 F) 10/16/2022 10:22 AM CDT Respiratory Rate 14 01/09/2022 2:13 PM CDT Oxygen Saturation 98% 01/21/2023 10:21 AM CDT Inhaled Oxygen Concentration - - Weight 66.2 kg (146 lb) 01/21/2023 10:21 AM CDT Height 165.1 cm (5' 5) 01/21/2023 10:21 AM CDT Body Mass Index 24.3 01/21/2023 10:21 AM CDT Plan of Treatment Health Maintenance Due Date Last Done Comments Hepatitis C Screening 1990 DTaP/Tdap/Td Vaccine (1 - Tdap) 2001 Varicella Vaccines (1 of 2 - 13+ 2-dose series) 2003 Hepatitis B Screening 2008 Pneumococcal vaccine <65 (1 of 2 - PCV) 2009 HPV Vaccines (1 - 3-dose SCD M series) 2017 Cervical Cancer Screening 01/11/2022 01/11/2021 Regular Well Visit/Exam 18-64 10/17/2023 10/16/2022 Depression Screening 01/22/2024 01/21/2023, 10/16/2022, 01/09/2022, Additional history exists Influenza Vaccine (#1) 2025 Procedures Procedure Name Priority Date/Time Associated Diagnosis Comments THINPREP IMAGING PAP AND HPV MRNA E6/E7, CHLAMYDIA/N.GONORRH OEAE Routine 01/11/2021 11:28 AM CDT from Last 3 Months or Most Recently Relevant to Health Maintenance Results * (ABNORMAL) ThinPrep Imaging Pap and HPV mRNA E6/E7, Chlamydia/N.Gonorrhoeae (01/11/2021 11:28 AM CDT) CLINICAL INFORMATION: [facility] Comment:SCREENING LMP [facility] Comment:DECEMBER 30 Previous Pap [facility] Comment:INFORMATION NOT PROV IDED Prev. Bx [facility] Comment:INFORMATION NOT PROV IDED SOURCE: [facility] Comment:Cervix, Endocervix Pap, specimen adequacy [facility] Comment: Satisfactory for evaluation. Endocervical/transformation zone component present. HPV interp [facility] Comment:Negative for intraep ithelial lesion or malignancy. COMMENTS [facility] Comment: This Pap test has been evaluated with computer assisted technology. Sales And Service Change Leader [facility] Comment: BEF, CT(ASCP) CT screening location: [place] [address] [place] [address] Review hardener helper [facility] Comment: TMK, CT(ASCP) CT screening location: [place] [address] [address]URISIO Barros [facility] Comment [facility] Comment: EXPLANATORY NOTE: The Pap is a screening test for cervical cancer. It is not a diagnostic test and is subject to false negative and false positive results. It is most reliable when a satisfactory sample, regularly obtained, is submitted with relevant clinical findings and history, and when the Pap result is evaluated along with historic and current clinical information. Human papillomavirus RNA, High Risk E6/E7 Detected(A) Not Detected [facility] Comment: Methodology: Secretary Book Keeper-Mediated Amplification This assay detects E6/E7 viral messenger RNA (mRNA) from 14 high-risk HPV types (16,18,31,33,35,39,45,51,52,56,58,59,66,68). The analytical performance characteristics of this assay have been determined by [facility]. The modifications have not been cleared or approved by the FDA. This assay has been validated pursuant to the CLIA regulations and is used for clinical purposes. For additional information, please refer to http://education.Theralogix.Activation Life/faq/HPQ272h0 (This link if provided for information/ educational purposes only.) C. trachomatis RNA NOT DETECTED NOT DETECTED [facility] N. gonorrhoeae RNA NOT DETECTED NOT DETECTED [facility] Comment [facility] Comment: The analytical performance characteristics of this assay, when used to test SurePath(TM) specimens have been determined by [facility]. The modifications have not been cleared or approved by the FDA. This assay has been validated pursuant to the CLIA regulations and is used for clinical purposes. For additional information, please refer to https://education.KickSport/faq/ETV355 (This link is being provided for information/ educational purposes only.) 01/11/2021 11:2 8 AM CDT 01/12/2021 5:40 AM CDT Alaina Teague DO LAB PATHOLOGY ORDERABLE S Final Result Performing Organization Address City/State/[facility] Co de Phone Number LUC[facility] [address] [place] [address] [facility] [address] [place] [address] from Last 3 Months or Most Recently Relevant to Health Maintenance Insurance [facility] Care Teams Computer Information Systems Instructor Relationship Specialty Start Date End Date Alaina Teague DO [address] [id number] Consulting Physician Obstetrics and Gynecology 02/08/21
--- OUTSIDE RECORDS SUMMARY | 2025-01-22 12:40 | XMS_ITS | Clinical Summary ---
Author Organization [facility] Address [address] [place] [address] Phone Care Team Providers Care Manager Express Name Role Phone Kristopher Scmhitt MD Primary Care Provider Allergies No known active allergies Medications FLUoxetine (PROzac) 20 MG Capsule Take 1 Capsule by mouth daily. 04/06/2022 Active amoxicillin-cla vulanate (AUGMENTIN) 875-125 MG Tablet TAKE 1 TABLET BY MOUTH TWICE DAILY FOR 10 DAYS 10/16/2022 Active Social History Tobacco Use Types Packs/Day Years Used Date Smoking Tobacco: Every Day Cigarettes Alcohol Use Standard Drinks/Week Comments Yes 1 (1 standard drink = 0.6 oz pur e alcohol) weekends Comments No Sex and Gender Information Value Date Recorded Sex Assigned at Not on file Legal Sex Female 7:35 PM CDT Gender Identity Not on file Sexual Orientation Not on file Last Filed Vital Signs Vital Sign Reading Time Taken Comments Blood Pressure 122/74 10/27/2022 9:20 PM CDT Pulse 95 10/28/2022 2:59 AM CDT Temperature 35.9 C (96.6 F) 10/27/2022 9:20 PM CDT Respiratory Rate 16 10/28/2022 2:59 AM CDT Oxygen Saturation 98% 10/28/2022 2:59 AM CDT Inhaled Oxygen Concentration - - Weight 63.5 kg (140 lb) 10/27/2022 9:20 PM CDT Height 167.6 cm (5' 6) 10/27/2022 9:20 PM CDT Body Mass Index 22.6 10/27/2022 9:20 PM CDT Plan of Treatment Health Maintenance Due Date Last Done Comments Hepatitis C Virus (HCV) Screening 1990 TdaP Immunization 1990 Hepatitis B Immunization (1 of 3 - 19+ 3-dose series) 2009 Pap Smear 2011 Human Papillomavirus (HPV) Immunization (1 - 3-dose SCDM series) 2017 Cervical Cancer Screening (CCS) 2020 HPV/Cotest 2020 SARS-COV-2 Immunization ( - season) 2024 Influenza Immunization (#1) 2025 Respiratory Syncytial Virus (RSV) Immunization (Adult) (1 - 1-dose 75+ series) 2065 Meningococcal Immunization (ACWY) Aged Out No longer eligible based on patient's age to complete this topic Pneumococcal Immunization Combined Aged Out No longer eligible based on patient's age to complete this topic Rotavirus Immunization Aged Out No lo nger eligible based on patient's age to complete this topic Insurance [employer] [facility] Care Teams Manager Express Relationship Specialty Start Date End Date Kristopher Schmitt MD [address] [place] [address] , [address] [address] PCP - General Family Medicine 10/27/22
--- OUTSIDE RECORDS SUMMARY | 2025-01-22 12:40 | XMS_ITS | Continuity of Care Document ---
Author Organization [facility] Address [address] [place] [address] Phone Care Team Providers Care Numerologist Name Role Phone Sj Peters MD Unavailable Unavailable Advance Directives Directive Yes / No Effective Date File Name No Information Encounters Encounter Description Practice Location Reason(s) For Visit Diagnoses Date Provider Providers Copied on Encounter [facility], [address], [place], [place], [id number], [place] tel:[phone] [facility] No Information Lorraine Gustafson. [address] [place], [place], [id number], [place]. tel:[phone] Referring Provider: Brendan Barillas DO, [address], [place], [address]. tel:[phone] Family History Family Member Type Diagnosis Age At Onset No Information Payers Payer name Insurance type Covered democrat ID Authoriza tion(s) [facility] CI [id number] Social History Type Description Quantity Date Captured Comments Sex Female Smoking Status No Information Chief Complaint And Reason For Visit No Information Reason For Referral Reason For Referral No Information History Of Present Illness Encounter Date Complaint History Of Prese nt Illness No Information Functional Status Date Functional Assessmen t No Information Instructions Date Instruction Additional Infor mation No Information Assessments Type Assessment Date No Information Patient Care Teams Name Effective Dates (start - stop) Status Members No Information
--- OUTSIDE RECORDS SUMMARY | 2025-01-22 12:40 | XMS_ITS | Clinical Summary ---
Author Organization [facility] Address [address] [place] [address] Care Team Providers Care Financial Adviser Name Role Phone None, Provider MD Primary Care Provider Unavaila ble Allergies No known active allergies Medications methylPREDNISol one, KEVAN, (MEDROL DOSEPAK) 4 MG tabletIndicatio ns:Middle ear effusion, bilateral Follow package directions 21 tablet Active Social History Tobacco Use Types Packs/Day Years Used Date Smoking Tobacco: Every Day Cigarettes Smokeless Tobacco: Never Tobacco Cessation:Ready to Q uit: Yes; Counseling Given: Yes Alcohol Use Standard Drinks/Week Comments Yes 1.7 (1 standard drink = 0.6 oz p ure alcohol) PHQ-2 Answer Date Recorded Patient Health Questionnaire-2 Score 0 08/13/2023 Comments No Sex and Gender Information Value Date Recorded Sex Assigned at Not on file Legal Sex Female 6:12 PM RADIOLOGIST PHYSICIAN Gender Identity Not on file Sexual Orientation Not on file Last Filed Vital Signs Vital Sign Reading Time Taken Comments Blood Pressure 101/67 08/13/2023 6:19 PM RADIOLOGIST PHYSICIAN Pulse 91 08/13/2023 6:19 PM RADIOLOGIST PHYSICIAN Temperature 36.9 C (98.4 F) 08/13/2023 6:19 PM RADIOLOGIST PHYSICIAN Respiratory Rate 12 08/13/2023 6:19 PM RADIOLOGIST PHYSICIAN Oxygen Saturation 97% 08/13/2023 6:19 PM RADIOLOGIST PHYSICIAN Inhaled Oxygen Concentration - - Weight 66.7 kg (147 lb) 08/13/2023 6:19 PM RADIOLOGIST PHYSICIAN Height 167.6 cm (5' 6) 08/13/2023 6:19 PM RADIOLOGIST PHYSICIAN Body Mass Index 23.73 08/13/2023 6:19 PM RADIOLOGIST PHYSICIAN Plan of Treatment Health Maintenance Due Date Last Done Comments Cervical Cancer Screening Pa p Smear (Age 30 to 64) Every 3 Years 1990 Annual Physical 1993 Hepatitis C 2008 DTaP, Tdap and Td Vaccines ( 1 - Tdap) 2009 Hepatitis B Vaccines (1 of 3 - 19+ 3-dose series) 2009 Pneumococcal Vaccine: Pediat rics (0 to 5 Years) and At-Risk Patients (6 to 49 Years) (1 of 2 - PCV) 2009 HPV Vaccines (1 - 3-dose SCD M series) 2017 Cervical Cancer Screening Pa vee with HPV Testing (Age 30 to 64) Every 5 Years 2020 Cervical Cancer Screening with HPV 2020 COVID-19 Vaccine ( - 2023-2 5 season) 2024 PHQ-2 (Physician [place]) 06/10/2024 08/13/2023 Meningococcal B Vaccine Aged Out No l onger eligible based on patient's age to complete this topic Meningococcal Vaccine Aged Out No gilberto panchito eligible based on patient's age to complete this topic RSV Immunizations Under 20 Months Aged Out No longer eligible based on patient's age to complete this topic Insurance [employer] Care Teams Financial Adviser Relationship Specialty Start Date End Date None, Provider, MD PCP - General UNKNOWN PHYSICIAN SPECIALTY 08/13/23
[2025-01-22 12:48] LABS: Hematocrit 39.1 % (35.0-49.0); Hemoglobin 13.4 g/dL (12.0-15.0); Immature Granulocyte Percent A 0.2 % (0.0-0.0); Lymphocytes Absolute Auto 1.79 K/mm3 (1.10-4.50); Mean Corpuscular HGB Conc 34.3 g/dL (32-36); Mean Corpuscular Hemoglobin 33.1 pg (27.0-31.0); Mean Corpuscular Volume 96.5 fL (78.0-102.0); Nucleated Red Blood Cells Absolute Auto 0.00 K/mm3 (0.00-0.00); Nucleated Red Blood Cells Perc 0.0 % (0-0.0); Platelet Count Result 329 K/mm3 (150-420); Red Blood Count 4.05 M/mm3 (4.20-5.40); White Blood Count 5.4 K/mm3 (4.8-10.8)
[2025-01-22 13:16] LABS: INR 0.9; Prothrombin Time 10.5 Seconds (9.50-12.1)
[2025-01-22 13:27] LABS: Alanine Aminotransferase 38 U/L (6-35); Albumin Level 4.8 g/dL (3.5-5.1); Alkaline Phosphatase 66 U/L (38-126); Anion Gap 7 mmol/L (4-12); Aspartate Amino Transferase 35 U/L (14-36); Bilirubin,Total 1.2 mg/dL (0.2-1.3); Blood Urea Nitrogen 16 mg/dL (7-17); Calcium 10.3 mg/dL (8.4-10.2); Carbon Dioxide 29 mmol/L (22-30); Chloride 103 mmol/L (98-107); Estimated Glomerular Filt Rate > 60; Glucose 97 mg/dL (65-110); Iron 261 ug/dL (37-170); Osmolality Calculated 289 mOsm/kg (285-295); Potassium 4.2 mmol/L (3.4-5.0); Sodium 139 mmol/L (137-145); Total Protein 7.4 g/dL (6.3-8.2)
[2025-01-22 13:36] LABS: Percent Iron Saturation 83 % (20-50)
[2025-01-22 13:45] LABS: Free T4 Free Thyroxine 1.16 ng/dL (0.78-2.19)
[2025-01-22 13:58] LABS: Thyroid Stimulating Hormone 0.936 uIU/mL (0.465-4.680)
[2025-01-23 07:09] LABS: FSH 6.1 mIU/mL (.); LH 16.3 mIU/mL (.)
== END 2025-01-22 12:36 | disposition home or self-care (01) ==
LOC: CHSLAB 12:36
PROVIDERS: PCP Nurse Practitioner Family; Visit Provider Nurse Practitioner Family
DX: R23.3 Spontaneous ecchymoses (principal); E03.9 Hypothyroidism, unspecified; R23.2 Flushing; I10 Essential (primary) hypertension; Z79.899 Other long term (current) drug therapy; Z79.01 Long term (current) use of anticoagulants
CPT/HCPCS: 36415; 80053; 82306; 83001; 83002; 83540; 83550; 84439; 84443; 84480; 85025; 85610

== ENCOUNTER 2025-02-10 13:53 | Outpatient (CLI) | payer OTHER, SELFPAY ==
[2025-02-10 14:37] LABS: Iron 206 ug/dL (37-170)
[2025-02-10 14:46] LABS: Percent Iron Saturation 60 % (20-50)
[2025-02-10 15:13] LABS: Ferritin 33.60 ng/mL (6.24-137)
--- OUTSIDE RECORDS SUMMARY | 2025-02-10 15:13 | XMS_ITS | Clinical Summary ---
Author Organization [facility] Address [address] [place] [address] Phone Care Team Providers Care Core Checker Name Role Phone Kristopher Schmitt MD Primary Care Provider Allergies No known [...] Cervical Cancer Screening (CCS) 2020 HPV/Cotest 2020 Influenza Immunization (#1) 2025 SARS-COV-2 Immunization ( season) 2025 Respiratory Syncytial Virus (RSV) Immunization (Adult) (1 - 1-dose 75+ series) 2065 Meningococcal Immunization (ACWY) Aged Out No longer eligible based on patient's age to complete this topic Pneumococcal Immunization Combined Aged Out No longer eligible based on patient's age to complete this topic Rotavirus Immunization Aged Out No lo nger eligible based on patient's age to complete this topic Insurance [employer] [facility] Care Teams Core Checker Relationship Specialty Start Date End Date Kristopher Schmtit MD [address] [place] [address] , [address] [address] PCP - General Family Medicine 10/27/22
--- OUTSIDE RECORDS SUMMARY | 2025-02-10 15:13 | XMS_ITS | Clinical Summary ---
Author Organization [facility] Address [address] [place] [address] Care Team Providers Care Shore Worker Name Role Phone None, Provider MD Primary [...] on file Legal Sex Female 6:12 PM MANAGER REGIONAL Gender Identity Not on file Sexual Orientation Not on file Last Filed Vital Signs Vital Sign Reading Time Taken Comments Blood Pressure 101/67 08/13/2023 6:19 PM MANAGER REGIONAL Pulse 91 08/13/2023 6:19 PM MANAGER REGIONAL Temperature 36.9 C (98.4 F) 08/13/2023 6:19 PM MANAGER REGIONAL Respiratory Rate 12 08/13/2023 6:19 PM MANAGER REGIONAL Oxygen Saturation 97% 08/13/2023 6:19 PM MANAGER REGIONAL Inhaled Oxygen Concentration - - Weight 66.7 kg (147 lb) 08/13/2023 6:19 PM MANAGER REGIONAL Height 167.6 cm (5' 6) 08/13/2023 6:19 PM MANAGER REGIONAL Body Mass Index 23.73 08/13/2023 6:19 PM MANAGER REGIONAL Plan of Treatment Health Maintenance Due Date [...] - 2023-2 5 season) 2024 PHQ-2 (Physician [place]) 06/10/2024 08/13/2023 Meningococcal B Vaccine Aged Out No l onger eligible based on patient's age to complete this topic Meningococcal Vaccine Aged Out No gilberto panchito eligible based on patient's age to complete this topic RSV Immunizations Under 20 Months Aged Out No longer eligible based on patient's age to complete this topic Insurance [employer] Care Teams Shore Worker Relationship Specialty Start Date End Date None, Provider, MD PCP - General UNKNOWN PHYSICIAN SPECIALTY 08/13/23
--- OUTSIDE RECORDS SUMMARY | 2025-02-10 15:13 | XMS_ITS | Clinical Summary ---
Author Organization [facility] Physician Office Building [address] [place] [address] Care Team Providers Care Central Service Technician Name Role Phone Alaina Teague DO Unavailable [phone] Allergies No known active allergies Medications ondansetron [...] Date Smoking Tobacco: Every Day Cigarettes 1 18.7 Started: 06/10/2006 Smokeless Tobacco: Never Tobacco Cessation:Ready [...] on file Legal Sex Female 10:37 AM REGULATORY AFFAIRS SPEC Gender Identity Female 02/14/2021 10:37 PM CDT [...] Chlamydia/N.Gonorrhoeae (01/11/2021 11:28 AM CDT) CLINICAL INFORMATION: [facility] Comment:SCREENING LMP [facility] Comment:DECEMBER 30 Previous Pap [facility] Comment:INFORMATION NOT PROV IDED Prev. Bx [facility] Comment:INFORMATION NOT PROV IDED SOURCE: [facility] Comment:Cervix, Endocervix Pap, specimen adequacy [facility] Comment: Satisfactory for evaluation. Endocervical/transformation zone component present. HPV interp [facility] Comment:Negative for intraep ithelial lesion or malignancy. COMMENTS [facility] Comment: This Pap test has been evaluated with computer assisted technology. Admittance Attendant [facility] Comment: BEF, CT(ASCP) CT screening location: [place] [address] [place] [address] Review chemical process engineer [facility] Comment: TMK, CT(ASCP) CT screening location: [place] [address] [address] MAURISIO Barrso [facility] Comment [facility] Comment: EXPLANATORY NOTE: The Pap is a [...] RNA, High Risk E6/E7 Detected(A) Not Detected [facility] [employer] [place] Comment: Methodology: Electron Microprobe Operator-Mediated Amplification This assay detects E6/E7 viral messenger RNA (mRNA) from 14 high-risk HPV types (16,18,31,33,35,39,45,51,52,56,58,59,66,68). The analytical performance characteristics of this assay have been determined by [facility]. The modifications have not been cleared or approved by the FDA. This assay has been validated pursuant to the CLIA regulations and is used for clinical purposes. For additional information, please refer to http://education.[employer]er.[place]/faq/NXD385z7 (This link if provided for information/ educational purposes only.) C. trachomatis RNA NOT DETECTED NOT DETECTED [facility] N. gonorrhoeae RNA NOT DETECTED NOT DETECTED [facility] Comment [facility] Comment: The analytical performance characteristics of this assay, when used to test SurePath(TM) specimens have been determined by [facility]. The modifications have not been cleared or approved by the FDA. This assay has been validated pursuant to the CLIA regulations and is used for clinical purposes. For additional information, please refer to https://education.[employer]/faq/NZV570 (This link is being provided for information/ educational purposes only.) 01/11/2021 11:2 8 AM CDT 01/12/2021 5:40 AM CDT Alaina Teague DO LAB PATHOLOGY ORDERABLE S Final Result Performing Organization Address City/State/[facility] Co de Phone Number LUCIO [facility] [address] [place] [address] [facility] [address] [place] [address] from Last 3 Months or Most Recently Relevant to Health Maintenance Insurance [facility] CHOICE PLUS Care Teams Central Service Technician Relationship Specialty Start Date End Date Alaina Teague DO [address] [address] Consulting Physician Obstetrics and Gynecology 02/08/21
== END 2025-02-10 13:54 | disposition home or self-care (01) ==
LOC: CHSLAB 13:55
PROVIDERS: PCP Nurse Practitioner Family; Visit Provider Nurse Practitioner Family
DX: R79.0 Abnormal level of blood mineral (principal)
CPT/HCPCS: 36415; 82728; 83540; 83550

== ENCOUNTER 2025-04-15 11:49 | Outpatient (CLI) | payer OTHER, SELFPAY ==
[2025-04-15 15:40] LABS: Beta HCG Quantitative 32421.00 mIU/ML
== END 2025-04-15 11:50 | disposition home or self-care (01) ==
PROVIDERS: PCP Nurse Practitioner Family; Visit Provider Nurse Practitioner Family
DX: Z32.01 Encounter for pregnancy test, result positive (principal)
CPT/HCPCS: 36415; 84702

== ENCOUNTER 2025-04-19 12:53 | Outpatient (CLI) | payer OTHER, SELFPAY ==
--- NOTE | ~2025-04-19 | US_ITS ---
EXAMINATION: US OB <= 14 weeks fetus DATE: 04/19/2025 13:39 INDICATION: Establish dating of first trimester TECHNIQUE: Real-time pelvic ultrasound utilizing both a transvaginal and transabdominal probe was performed. The interpreting radiologist was not present for the study. COMPARISON: None. FINDINGS: The uterus measures 9.8 x 6.3 x 4.5 cm. There is an intrauterine gestational sac. A yolk sac and pole are identified. The crown rump length measures 8 mm, which correlates with an estimated gestational age of 6 weeks and 5 days. heart motion is identified measuring 161 beats per minute (bpm) by M-mode Doppler. The right ovary measures 4.6 x 2.4 x 3.0 cm. The left ovary is not visualized. There is no free fluid in the pelvis. IMPRESSION: 1. Single living fetus with heart rate of 161 bpm. 2. Gestational age by ultrasound of 6 weeks 5 day(s) +/- 3 day(s) with ultrasound estimated date of delivery (CASIMIRO) of 12/08/2025. Reviewed, dictated and finalized at location A. NATOR MAKER IMPRESSION: 1. Single living fetus with heart rate of 161 bpm. 2. Gestational age by ultrasound of 6 weeks 5 day(s) +/- 3 day(s) with ultraso und estimated date of delivery (CASIMIRO) of 12/08/2025.
--- OUTSIDE RECORDS SUMMARY | 2025-04-19 13:06 | XMS_ITS | Clinical Summary ---
Author Organization [facility] Address [address] [place] [address] Phone Care Team Providers Care Prizer Hand Name Role Phone Kristopher Schmitt MD Primary [...] patient's age to complete this topic Insurance [employer] [facility] Care Teams Prizer Hand Relationship Specialty Start Date End Date Kristopher Schmitt MD [address] [place] [address] , [address] [address] PCP - General Family Medicine 10/27/22
--- OUTSIDE RECORDS SUMMARY | 2025-04-19 13:06 | XMS_ITS | Clinical Summary ---
Author Organization [facility] Sunni plasencia Christina Address [address] [place] [address] Care Team Providers Care Retail Custodial Associate Name Role Phone Unavailable Primary Care Provider Unavailabl e Social History Tobacco Use Types Packs/Day Years Used Date Smoking Tobacco: Never Assessed Comments Unknown Sex and Gender Information Value Date Recorded Sex Assigned at Not on file Legal Sex Female 1:25 PM CDT Gender Identity Not on file Sexual Orientation Not on file Plan of Treatment Upcoming Encounters Date Type Department Care Team (Late st Contact Info) Description 04/29/2025 10:30 AM PARK WARDEN Office Visit [facility] Oncology and Hematology - [place] [address] [place] [address] Helena Brian MD [address] [place] [address] Health Maintenance Due Date Last Done Comments DTAP/TDAP/TD VACCINES (1 - Tdap) 2009 HEPATITIS B VACCINES (1 of 3 - 19+ 3-dose series) 06/10 HPV/Cotest (21-29) 2011 HPV VACCINES (1 - 3-dose SCDM series) 2017 CERVICAL CANCER SCREENING 2020 HPV/Cotest (30-65) 2020 PAP SMEAR 2020 INFLUENZA VACCINE (#1) 2025 Insurance [facility] MEDICAID
--- OUTSIDE RECORDS SUMMARY | 2025-04-19 13:06 | XMS_ITS | Clinical Summary ---
Author Organization [facility] Address [address] [place] [address] Care Team Providers Care Burrer Marker Axle Name Role Phone None, Provider MD Primary [...] on file Legal Sex Female 6:12 PM FITTING ROOM ASSOCIATE Gender Identity Not on file Sexual Orientation Not on file Last Filed Vital Signs Vital Sign Reading Time Taken Comments Blood Pressure 101/67 08/13/2023 6:19 PM FITTING ROOM ASSOCIATE Pulse 91 08/13/2023 6:19 PM FITTING ROOM ASSOCIATE Temperature 36.9 C (98.4 F) 08/13/2023 6:19 PM FITTING ROOM ASSOCIATE Respiratory Rate 12 08/13/2023 6:19 PM FITTING ROOM ASSOCIATE Oxygen Saturation 97% 08/13/2023 6:19 PM FITTING ROOM ASSOCIATE Inhaled Oxygen Concentration - - Weight 66.7 kg (147 lb) 08/13/2023 6:19 PM FITTING ROOM ASSOCIATE Height 167.6 cm (5' 6) 08/13/2023 6:19 PM FITTING ROOM ASSOCIATE Body Mass Index 23.73 08/13/2023 6:19 PM FITTING ROOM ASSOCIATE Plan of Treatment Health Maintenance Due Date [...] M series) 2017 Cervical Cancer Screening Pa p with HPV Testing (Age 30 to 64) Every 5 Years 2020 Cervical Cancer Screening with HPV 2020 PHQ-2 (Physician [place]) 06/10/2024 08/13/2023 COVID-19 Vaccine ( - 2024-2 6 season) 2025 Influenza Adult (#1) 2025 Hepatitis A Vaccines Aged Out No long er eligible based on patient's age to complete this topic Meningococcal B Vaccine Aged Out No l onger eligible based on patient's age to complete this topic Meningococcal Vaccine Aged Out No gilberto panchito eligible based on patient's age to complete this topic RSV Immunizations Under 20 Months Aged Out No longer eligible based on patient's age to complete this topic Insurance [facility] Care Teams Burrer Marker Axle Relationship Specialty Start Date End Date None, Provider, PCP - General UNKNOWN PHYSICIAN SPECIALTY 08/13/23
--- OUTSIDE RECORDS SUMMARY | 2025-04-19 13:06 | XMS_ITS | Clinical Summary ---
Author Organization [facility] Physician Office Building [address] [place] [address] Care Team Providers Care Semiconductor Packages Platemaker Name Role Phone Alaina Teague DO Unavailable [phone] Allergies No known active allergies Medications ondansetron [...] Date Smoking Tobacco: Every Day Cigarettes 1 18.9 Started: 06/10/2006 Smokeless Tobacco: Never Tobacco Cessation:Ready [...] on file Legal Sex Female 10:37 AM WOOL SUPPLIER Gender Identity Female 02/14/2021 10:37 PM CDT Sexual Orientation Straight 02/14/2021 10 :37 PM CDT Occupation Industry Job Start Date Job End Date Not on file Not on file Not on file Not on file Last Filed Vital Signs [...] Chlamydia/N.Gonorrhoeae (01/11/2021 11:28 AM CDT) CLINICAL INFORMATION: [facility] Comment:SCREENING LMP [facility] Comment:DECEMBER [address] [facility] Comment:INFORMATION NOT PROV IDED Prev. Bx [facility] Comment:INFORMATION NOT PROV IDED SOURCE: [facility] Comment:Cervix, Endocervix Pap, specimen adequacy [facility] Comment: Satisfactory for evaluation. Endocervical/transformation zone component present. HPV interp [facility] Comment:Negative for intraep ithelial lesion or malignancy. COMMENTS [facility] Comment: This Pap test has been evaluated with computer assisted technology. Concrete Boom Operator [facility] Comment: BEF, CT(ASCP) CT screening location: [place] [address] [place] [address] [address] [facility] Comment: TMK, CT(ASCP) CT screening location: [place] [address] [address] MAURISIO Barros [facility] Comment [facility] Comment: EXPLANATORY NOTE: The Pap is a [...] RNA, High Risk E6/E7 Detected(A) Not Detected [facility] [employer] [facility] Comment: Methodology: Mechanical Tech-Mediated Amplification This assay detects E6/E7 viral messenger RNA (mRNA) from 14 high-risk HPV types (16,18,31,33,35,39,45,51,52,56,58,59,66,68). The analytical performance characteristics of this assay have been determined by [facility]. The modifications have not been cleared or approved by the FDA. This assay has been validated pursuant to the CLIA regulations and is used for clinical purposes. For additional information, please refer to http://education.[employer]/faq/JEI468l3 (This link if provided for information/ educational purposes only.) C. trachomatis RNA NOT DETECTED NOT DETECTED [facility] N. gonorrhoeae RNA NOT DETECTED NOT DETECTED [facility] Comment [facility] Comment: The analytical performance characteristics of this assay, when used to test SurePath(TM) specimens have been determined by [facility]. The modifications have not been cleared or approved by the FDA. This assay has been validated pursuant to the CLIA regulations and is used for clinical purposes. For additional information, please refer to https://education.DirectAdoptions.com/faq/VIG572 (This link is being provided for information/ educational purposes only.) 01/11/2021 11:2 8 AM CDT 01/12/2021 5:40 AM CDT Alaina Teague DO LAB PATHOLOGY ORDERABLE S Final Result [facility] [address] [place] [address] [facility] [address] [place] [address] from Last 3 Months or Most Recently Relevant to Health Maintenance Insurance [facility] CHOICE PLUS Care Teams Semiconductor Packages Platemaker Relationship Specialty Start Date End Date Alaina Teague DO [address] [place] [address] Consulting Physician Obstetrics and Gynecology 02/08/21
== END 2025-04-19 12:54 | disposition home or self-care (01) ==
LOC: CHSIMG 12:54
PROVIDERS: PCP Nurse Practitioner Family; Visit Provider Nurse Practitioner Family
DX: Z32.01 Encounter for pregnancy test, result positive (principal); Z3A.01 Less than 8 weeks gestation of pregnancy
CPT/HCPCS: 76801

== ENCOUNTER 2025-04-29 10:38 | Outpatient (CLI) | payer OTHER, SELFPAY ==
[2025-04-29 10:50] LABS: Hematocrit 38.5 % (37.0-47.0); Hemoglobin 13.5 g/dL (12.0-15.0); Immature Granulocyte Percent A 0.2 % (0-0.5); Lymphocytes Absolute Auto 1.28 K/mm3 (0.9-3.2); Mean Corpuscular HGB Conc 35.1 g/dl (32-36); Mean Corpuscular Hemoglobin 33.8 pg (26-34); Mean Corpuscular Volume 96.3 fl (80-100); Nucleated Red Blood Cells Absolute Auto 0.000 K/mm3 (0.0-0.012); Nucleated Red Blood Cells Perc 0.0 % (0.0-0.2); Platelet Count Result 352 k/mm3 (150-375); Red Blood Count 4.00 M/mm3 (4.2-5.4); White Blood Count 8.3 K/mm3 (4.5-10.0)
[2025-04-29 14:46] LABS: Alanine Aminotransferase 26 U/L (6-35); Albumin Level 4.4 g/dL (3.5-5.1); Alkaline Phosphatase 61 U/L (38-126); Anion Gap 8 mmol/L (4-12); Aspartate Amino Transferase 24 U/L (14-36); Bilirubin,Total 0.5 mg/dL (0.2-1.3); Blood Urea Nitrogen 8 mg/dL (7-17); Calcium 9.2 mg/dL (8.4-10.2); Carbon Dioxide 23 mmol/L (22-30); Chloride 103 mmol/L (98-107); Estimated Glomerular Filt Rate > 60; Glucose 75 mg/dL (65-110); Potassium 4.2 mmol/L (3.4-5.0); Sodium 134 mmol/L (137-145); Total Protein 7.2 g/dL (6.3-8.2)
[2025-04-29 14:48] LABS: Iron 159 ug/dL (37-170)
[2025-04-29 14:59] LABS: Percent Iron Saturation 59 % (20-50)
[2025-04-29 15:32] LABS: Ferritin 25.50 ng/mL (6.24-137)
== END 2025-04-29 10:39 | disposition home or self-care (01) ==
LOC: ANHLAB 10:38
PROVIDERS: PCP Nurse Practitioner Family; Visit Provider Internal Medicine Hematology & Oncology
DX: O99.011 Anemia complicating pregnancy, first trimester (principal); Z3A.00 Weeks of gestation of pregnancy not specified
CPT/HCPCS: 36415; 80053; 82728; 83540; 83550; 85025

== ENCOUNTER 2025-05-31 13:50 | Outpatient (CLI) | payer OTHER, SELFPAY ==
[2025-05-31 14:13] LABS: Hematocrit 34.9 % (37.0-47.0); Hemoglobin 12.4 g/dL (12.0-15.0); Immature Granulocyte Percent A 0.2 % (0-0.5); Lymphocytes Absolute Auto 2.09 K/mm3 (0.9-3.2); Mean Corpuscular HGB Conc 35.5 g/dl (32-36); Mean Corpuscular Hemoglobin 33.2 pg (26-34); Mean Corpuscular Volume 93.6 fl (80-100); Nucleated Red Blood Cells Absolute Auto 0.000 K/mm3 (0.0-0.012); Nucleated Red Blood Cells Perc 0.0 % (0.0-0.2); Platelet Count Result 326 k/mm3 (150-375); Red Blood Count 3.73 M/mm3 (4.2-5.4); White Blood Count 8.3 K/mm3 (4.5-10.0)
--- OUTSIDE RECORDS SUMMARY | 2025-05-31 15:00 | XMS_ITS | Encounter Summary ---
Author Organization [facility] Healthcare Address [address] [place] [address] Care Team Providers Care Community Health Advocate Name Role Phone Alaina Teague DO Unavailable [phone] Unknown, Notinfile Primary Care Provider Unavail able Reason for Visit * Reason Comments New Patient Initial Visit Encounter Details Date Type Department Care Team ([facility] Contact Info) Description 05/31/2025 3:00 PM WATER VESSEL CAPTAIN Office Visit [facility] Medical Group [facility] [address] [place] [address] Alaina Teague DO [address] [place] [address] Arrived Social History Tobacco Use Types Packs/Day Years Used Date Smoking Tobacco: Former Cigarettes 1 19 S tarted: 06/10/2006 Smokeless Tobacco: Never AUDIT-C Answer Date Recorded Q1: How often [...] staff should administer the PHQ-9) 0 01/21/2023 Estimated Date of Delivery Comme nts Yes 12/08/2025 Based on Ultraso und Sex and Gender Information Value Date Recorded Sex Assigned at Not on file Legal Sex Female 10:37 AM WATER VESSEL CAPTAIN Gender Identity Female 02/14/2021 10:37 PM CDT Sexual Orientation Straight 02/14/2021 10 :37 PM CDT Occupation Industry Job Start Date Job End Date Not on file Not on file Not on file Not on file documented as of this encounter Last Filed Vital Signs Vital Sign Reading Time Taken Comments Blood Pressure 116/60 05/31/2025 2:57 PM WATER VESSEL CAPTAIN Pulse - - Temperature - - Respiratory Rate - - Oxygen Saturation - - Inhaled Oxygen Concentration - - Weight 68.9 kg (152 lb) 05/31/2025 2:57 PM WATER VESSEL CAPTAIN Height 165.1 cm (5' 5) 05/31/2025 2:57 PM WATER VESSEL CAPTAIN Body Mass Index 25.29 05/31/2025 2:57 PM WATER VESSEL CAPTAIN documented in this encounter Plan of Treatment Not on file documented as of this encounter Visit Diagnoses Not on filedocumented in this encounter Discontinued Medications Medication Sig Discontinue Reason Start Date End Da te nicotine (NICODERM CQ) [address] 1 patch on the skin daily Patient Reported 05/31/2025 ondansetron ODT (ZOFRAN-ODT) 4 mg disintegrating tablet DISSOLVE 1 TABLET ON THE TONGUE EVERY 8 HOURS Patient Reported 11/01/2021 05/31/2025 documented as of this encounter Historical Medications * This list may reflect changes made after this encounter. doxylamine-pyrido xine, vit B6, (DICLEGIS) 10-10 mg tablet Take 1 tablet by mouth 2 (two) times a day 04/30/2025 added in this encounter Care Teams Community Health Advocate Relationship Specialty Start Date End Date Unknown, Notinfile PCP - General 04/23/25 Alaina Teague DO [address] [place] [address] Consulting Physician Obstetrics and Gynecology 02/08/21 documented as of this encounter
--- OUTSIDE RECORDS SUMMARY | 2025-05-31 15:39 | XMS_ITS | Clinical Summary ---
Author Organization [facility] Address [address] [place] [address] Phone Care Team Providers Care Senior Windows Administrator Name Role Phone Kristopher Schmitt MD Primary [...] Virus (HCV) Screening 1990 TdaP Immunization 1990 Varicella Immunization (1 of 2 - 13+ 2-dose series) 2003 Hepatitis B Immunization (1 of 3 - 19+ 3-dose series) 2009 Pap Smear 2011 Cervical Cancer Screening (CCS) 2020 HPV/Cotest 2020 Influenza Immunization (#1) 2025 SARS-COV-2 Immunization ( - season) 2025 Respiratory Syncytial Virus (RSV) Immunization (Adult) (1 - 1-dose 75+ series) 2065 Human Papillomavirus (HPV) Immunization (No Doses Required) Completed Meningococcal Immunization (ACWY) Aged Out No longer eligible based on patient's age to complete this topic Pneumococcal Immunization Combined Aged Out No longer eligible based on patient's age to complete this topic Rotavirus Immunization Aged Out No lo nger eligible based on patient's age to complete this topic Insurance [employer] [facility] Care Teams Senior Windows Administrator Relationship Specialty Start Date End Date Kristopher Schmitt MD [address] [facility] , [address] [address] PCP - General Family Medicine 10/27/22
--- OUTSIDE RECORDS SUMMARY | 2025-05-31 15:39 | XMS_ITS | Patient Health Record ---
Author Organization [facility] , Address [address] [place] [address] Care Team Providers Care Cable Tester Name Role Phone Kathy Moreira Primary Care Provider Brendan Bacon Unavailable [phone] Reason For Referral No Information Medications Medication SIG (Take, Route, Fr equency, Duration) Notes Start Date End Date Status Ibuprofen Not-Taking Tylenol Active Social History Section Notes: She is a smoker and smokes 1 pack a day for the past 5 years. She drinks 2 alcoholic beverages a week.She denies history of drug or chemical abuse. She is not . She does not live with someone who can help her. She received a college education. She works packing orders and picking material. She performs her regular work duties. Her general state of health is excellent. She is 5'6 and weighs 120 pounds. 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 [address] [place] [address] [phone] [id number] Sandra Contreras Self - patient is the insured Medical (General) History Medical History History ICD Code Back pain Numbness in hands/feet Disc degeneration Herniated disc Denies h/o emotional/psychiatric disorde r Surgical History Surgery Date(Month/Year) Low back fusion 2004 Low back 2010 Stomach 2010 L3-5 LDL with disc L4-5 2017
--- OUTSIDE RECORDS SUMMARY | 2025-05-31 15:39 | XMS_ITS | Clinical Summary ---
Author Organization [facility] Sunni plasencia Arin Address [address] [place] [address] Care Team Providers Care Animal Feeder Name Role Phone Unavailable Primary Care Provider Unavailabl e Allergies No known active allergies Medications FLUoxetine (PROzac) 20 mg capsule Take 1 Capsule by mouth daily. 03/22/2025 Active PNV/iron/omega3 /folic ac/f.a.1 (PRE-NICKY MULTIVITAMINS/M INERALS ORAL) Take by mouth. Active Active Problems No known active problems Encounters Date Type Department Care Team Description 05/27/2025 4:30 PM WASTEWATER PROJECT ENGINEER Telephone Check Up [facility] Oncology and [facility] [address] [place] [id number] Angel Kennedy MD Iron overload (Primary Dx) 05/04/2025 External Device Data STL ABSTRACTION Provider, Abstract 05/04/2025 External Device Data STL ABSTRACTION Provider, Abstract 05/04/2025 External Device Data STL ABSTRACTION Provider, Abstract 04/29/2025 10:30 AM WASTEWATER PROJECT ENGINEER Office Visit [facility] Oncology and Hematology [facility] [address] [place] [address] Helena Brian MD Anemia affecting in first trimester (Primary Dx) from Last 3 Months Family History Medical History Relation Name Comments No Known Problems Brother No Known Problems Father Cancer Maternal Aunt maybe skin Tongue Cancer Mother mets to lung No Known Problems Sister 1 No Known Problems Sister 2 Relation Name Status Comments Brother Father Alive Maternal Aunt Mother Sister 1 Alive Sister 2 Alive Social History Tobacco Use Types Packs/Day Years Used Date Smoking Tobacco: Former Cigarettes 1 20 1 06/10/2004 - 04/10/2025 Smokeless Tobacco: Never Alcohol Use Standard Drinks/Week Comments Not Currently 0 (1 standard drink = 0.6 oz pur e alcohol) Comments Unknown Sex and Gender Information Value Date Recorded Sex Assigned at Not on file Legal Sex Female 1:25 PM CDT Gender Identity Not on file Sexual Orientation Not on file Last Filed Vital Signs Vital Sign Reading Time Taken Comments Blood Pressure 107/72 04/29/2025 10:11 AM WASTEWATER PROJECT ENGINEER Pulse 83 04/29/2025 10:11 AM WASTEWATER PROJECT ENGINEER Temperature 37.1 C (98.8 F) 04/29/2025 10:11 AM WASTEWATER PROJECT ENGINEER Respiratory Rate 15 04/29/2025 10:11 AM WASTEWATER PROJECT ENGINEER Oxygen Saturation 98% 04/29/2025 10:11 AM WASTEWATER PROJECT ENGINEER Inhaled Oxygen Concentration - - Weight 67 kg (147 lb 12.8 oz) 04/29/2025 10:11 A M WASTEWATER PROJECT ENGINEER Height 167.6 cm (5' 6) 04/29/2025 10:11 AM WASTEWATER PROJECT ENGINEER Body Mass Index 23.86 04/29/2025 10:11 AM WASTEWATER PROJECT ENGINEER Plan of Treatment Upcoming Encounters Date Type Department Care Team (Late st Contact Info) Description 06/16/2025 1:00 PM WASTEWATER PROJECT ENGINEER Office Visit [facility] Oncology and Hematology [facility] [address] [place] [address] [address] Angel Kennedy MD [address] [facility] [address] [place] [address] Health Maintenance Due Date Last Done Comments DTAP/TDAP/TD VACCINES (1 - Tdap) 2009 HEPATITIS B VACCINES (1 of 3 - 19+ 3-dose series) 06/10 HPV/Cotest (21-29) 2011 CERVICAL CANCER SCREENING 2020 HPV/Cotest (30-65) 2020 PAP SMEAR 2020 Preventative Visit- Commercial 06/10/2024 10/16/2022 INFLUENZA VACCINE (#1) 2025 HPV VACCINES (No Doses Required) Completed Insurance [facility] MEDICAID [facility] [id number]
--- OUTSIDE RECORDS SUMMARY | 2025-05-31 15:39 | XMS_ITS | Clinical Summary ---
Author Organization [facility] Address [address] [place] [address] Care Team Providers Care Communications Consultant Name Role Phone None, Provider MD Primary [...] on file Legal Sex Female 6:12 PM SERVICE INSPECTOR Gender Identity Not on file Sexual Orientation Not on file Last Filed Vital Signs Vital Sign Reading Time Taken Comments Blood Pressure 101/67 08/13/2023 6:19 PM SERVICE INSPECTOR Pulse 91 08/13/2023 6:19 PM SERVICE INSPECTOR Temperature 36.9 C (98.4 F) 08/13/2023 6:19 PM SERVICE INSPECTOR Respiratory Rate 12 08/13/2023 6:19 PM SERVICE INSPECTOR Oxygen Saturation 97% 08/13/2023 6:19 PM SERVICE INSPECTOR Inhaled Oxygen Concentration - - Weight 66.7 kg (147 lb) 08/13/2023 6:19 PM SERVICE INSPECTOR Height 167.6 cm (5' 6) 08/13/2023 6:19 PM SERVICE INSPECTOR Body Mass Index 23.73 08/13/2023 6:19 PM SERVICE INSPECTOR Plan of Treatment Health Maintenance Due Date [...] Cancer Screening with HPV 2020 PHQ-2 ([facility]) 06/10/2024 08/13/2023 COVID-19 Vaccine ( - 2024-2 [...] this topic Insurance [employer] Care Teams Communications Consultant Relationship Specialty Start Date End Date None, Provider, PCP - General UNKNOWN PHYSICIAN SPECIALTY 08/13/23
--- OUTSIDE RECORDS SUMMARY | 2025-05-31 15:40 | XMS_ITS | Clinical Summary ---
Author Organization [facility], [facility] Physician Office Building [address] [place] [address] Care Team Providers Care Sleeve Setter Lockstitch Name Role Phone Alaina Teague DO Unavailable [phone] Unknown, Notinfile Primary Care Provider Unavail able Allergies No known active allergies Medications FLUoxetine (PROzac) 20 mg capsuleIndications :Mild episode of recurrent major depressive disorder,Generaliz ed anxiety disorder TAKE 1 CAPSULE BY MOUTH EVERY DAY 90 capsule 2 Active doxylamine-pyridox ine, vit B6, (DICLEGIS) 10-10 mg tablet Take 1 tablet by mouth 2 (two) times a day 5 Active ondansetron ODT (ZOFRAN-ODT) 4 mg disintegrating tablet DISSOLVE 1 TABLET ON THE TONGUE EVERY 8 HOURS 2 025 Discontin ued(Patie nt Reported) nicotine (NICODERM CQ) 14 mgIndications:Sm[address] ing Cessation Place 1 patch on the skin daily 025 Discontin ued(Patie nt Reported) Active Problems Problem Noted Date Diagnosed Date [...] of arthrodesis 03/13/2011 Bulging lumbar disc 01/10/2011 Estimated Date of Delivery Comme nts Yes 12/08/2025 Based on Ultraso und Resolved Problems Problem Noted Date Diagnosed Date Resolved Date Pelvic mass 12/29/2020 10/16/2022 Overview (12/29/2020): Noted on CT 12/29/2020: IMPRESSION: Large cystic pelvic mass. Surgical consultation recommended. There is mass effect on the sigmoid colon. Closed fracture of left distal radius 07/21/2020 10/16/2022 Encounters Date Type Department Care Team Description 05/31/2025 3:00 PM CHAIN MAKER HAND Office Visit [facility] [address] [place] [address] Alaina Teague DO Arrived 05/05/2025 Telephone [facility] [address] [place] [address] Alaina Teague DO Patient issue/concern 04/23/2025 [facility] [address] [place] [phone] Alaina Teague, Encounter to determine viability of , single or unspecified fetus (Primary Dx) from Last 3 Months Immunizations Immunization Administration Dates Next Due Influenza, Unspecified 10/16/2022(Deferr ed: Patient Refused),03/10/2021(Deferred: Patient Refused),03/10/2020(Deferred: Patient Refused),03/10/2020(Deferred: Patient Refused) Surgical History Surgery Date Site/Laterality Comments BACK SURGERY DIAGNOSTIC LAPAROSCOPY ABDOMINAL SURGERY 2011 SPINE SURGERY 2004 and 2011 disc fusions Medical History Medical History Date Comments No pertinent past medical history Depression Menstrual problem Anxiety Family History Medical History Relation Name Comments No Known Problems Father COPD Mother Daria Cancer Mother Daria Hypertension Mother Daria Relation Name Status Comments Father Alive Mother Daria Alive Social History Tobacco Use Types Packs/Day [...] on file Legal Sex Female 10:37 AM CHAIN MAKER HAND Gender Identity Female 02/14/2021 10:37 PM CDT Sexual Orientation Straight 02/14/2021 10 :37 PM CDT Occupation Industry Job Start Date Job End Date Not on file Not on file Not on file Not on file Obstetrics History Para Term AB IAB SAB Ectopic Multiple Livin g Live Births 1 0 0 0 0 0 0 0 0 0 0 Date Outcome GA Total Labor Labor/2nd/3rd Weight Sex Type Anes PTL Gaby A1 A5 Name Clin Current Summary Episode Dates Number of Fetuses Estimated Date of Delivery 05/31/2025 - Present (05/31/2025) 12/08/2025 (set by Me yessica Teague DO on 05/31/2025 based on Ultrasound on 04/19/2025) Dating Summary Based On [place] Diff Last Menstrual Period (LMP Unknown) Ultrasound on 04/19/2025 12/08/2025 Working GA:6w5d Vitals Pregravid Weight Height TWG (As of 05/31/2025) Pregrav id BMI 165.1 cm (5' 5) Last Filed Vital Signs Vital Sign Reading Time Taken Comments Blood Pressure 116/60 05/31/2025 2:57 PM CHAIN MAKER HAND Pulse 84 01/21/2023 10:21 AM CDT Temperature 36.8 C (98.2 F) 10/16/2022 10:22 AM CDT Respiratory Rate 14 01/09/2022 2:13 PM CDT Oxygen Saturation 98% 01/21/2023 10:21 AM CDT Inhaled Oxygen Concentration - - Weight 68.9 kg (152 lb) 05/31/2025 2:57 PM CHAIN MAKER HAND Height 165.1 cm (5' 5) 05/31/2025 2:57 PM CHAIN MAKER HAND Body Mass Index 25.29 05/31/2025 2:57 PM CHAIN MAKER HAND Plan of Treatment Health Maintenance Due Date Last Done Comments Hepatitis C Screening 1990 Varicella Vaccines (1 of 2 - 13+ 2-dose series) 2003 Hepatitis B Screening 2008 Pneumococcal vaccine <65 (1 of 2 - PCV) 2009 DTaP/Tdap/Td Vaccine (2 - Td or Tdap) 04/17/2016 04/17/2006 HPV Vaccines (1 - 3-dose SCD M [...] Chlamydia/N.Gonorrhoeae (01/11/2021 11:28 AM CDT) CLINICAL INFORMATION: [facility] Comment:SCREENING LMP [facility] Comment:DECEMBER 30 Previous Pap [facility] Comment:INFORMATION NOT PROV IDED Prev. Bx [facility] Comment:INFORMATION NOT PROV IDED SOURCE: [facility] Comment:Cervix, Endocervix Pap, specimen adequacy [facility] Comment: Satisfactory for evaluation. Endocervical/transformation zone component present. HPV interp [facility] Comment:Negative for intraep ithelial lesion or malignancy. COMMENTS [facility] Comment: This Pap test has been evaluated with computer assisted technology. [employer] [facility] Comment: BEF, CT(ASCP) CT screening location: [place] [address] [place] [address] Review carpenter supervisor [facility] Comment: TMK, CT(ASCP) CT screening location: [place] [address] [place] [address] Comment [facility] Comment: EXPLANATORY NOTE: The Pap is [...] RNA, High Risk E6/E7 Detected(A) Not Detected [facility] [employer] Comment: Methodology: Dough Panner-Mediated Amplification This assay detects E6/E7 viral messenger RNA (mRNA) from 14 high-risk HPV types (16,18,31,33,35,39,45,51,52,56,58,59,66,68). The analytical performance characteristics of this assay have been determined by [email or web address]. The modifications have not been cleared or approved by the FDA. This assay has been validated pursuant to the CLIA regulations and is used for clinical purposes. For additional information, please refer to http://education.Trumpet Search/faq/YUC882z9 (This link if provided for information/ educational purposes only.) C. trachomatis RNA NOT DETECTED NOT DETECTED [facility] N. gonorrhoeae RNA NOT DETECTED NOT DETECTED [facility] Comment [facility] Comment: The analytical performance characteristics of this assay, when used to test SurePath(TM) specimens have been determined by [email or web address]. The modifications have not been cleared or approved by the FDA. This assay has been validated pursuant to the CLIA regulations and is used for clinical purposes. For additional information, please refer to https://Phrazit.Trumpet Search/faq/URD271 (This link is being provided for information/ educational purposes only.) 01/11/2021 11:2 8 AM CDT 01/12/2021 5:40 AM CDT Alaina Teague DO LAB PATHOLOGY ORDERABLE S Final Result [facility] [address] [place] [address] [facility] [address] [place] [address] from Last 3 Months or Most Recently Relevant to Health Maintenance Insurance [facility] CHOICE PLUS [facility] HMO/PPO Address: [facility] [address] [place] [address] [facility] Care Teams Sleeve Setter Lockstitch Relationship Specialty Start Date End Date Unknown, Notinfile PCP - General 04/23/25 Alaina Teague DO [address] [place] [address] Consulting Physician Obstetrics and Gynecology 02/08/21
[2025-05-31 16:22] LABS: Alanine Aminotransferase 23 U/L (6-35); Albumin Level 4.2 g/dL (3.5-5.1); Alkaline Phosphatase 83 U/L (38-126); Anion Gap 8 mmol/L (4-12); Aspartate Amino Transferase 60 U/L (14-36); Bilirubin,Total 0.3 mg/dL (0.2-1.3); Blood Urea Nitrogen 8 mg/dL (7-17); Calcium 9.3 mg/dL (8.4-10.2); Carbon Dioxide 24 mmol/L (22-30); Chloride 102 mmol/L (98-107); Estimated Glomerular Filt Rate > 60; Glucose 80 mg/dL (65-110); Iron 77 ug/dL (37-170); Potassium 3.9 mmol/L (3.4-5.0); Sodium 134 mmol/L (137-145); Total Protein 7.3 g/dL (6.3-8.2)
[2025-05-31 16:31] LABS: Percent Iron Saturation 24 % (20-50)
[2025-05-31 17:03] LABS: Ferritin 20.90 ng/mL (6.24-137)
== END 2025-05-31 13:51 | disposition home or self-care (01) ==
LOC: ANHLAB 13:51
PROVIDERS: PCP Nurse Practitioner Family; Visit Provider Internal Medicine Hematology & Oncology
DX: E83.19 Other disorders of iron metabolism (principal); O99.011 Anemia complicating pregnancy, first trimester; Z3A.00 Weeks of gestation of pregnancy not specified
CPT/HCPCS: 36415; 80053; 81256; 82728; 83540; 83550; 85025

== ENCOUNTER 2025-06-02 12:31 | Outpatient (CLI) | payer OTHER, SELFPAY ==
--- OUTSIDE RECORDS SUMMARY | 2025-05-31 15:53 | XMS_ITS | Encounter Summary ---
Author Organization [facility] Address [address] [place] [address] Care Team Providers Care Artist'S Representative Name Role Phone Alaina Teague DO Unavailable [phone] Unknown, Notinfile Primary Care Provider Unavail able Encounter Details Date Type Department Care Team (Latest Contact Info) Description 05/31/2025 3:53 PM STRING LASTER - 05/31/2025 11:59 PM STRING [facility]STER Hospital Encounter [address] [address] Screening for malignant neoplasm of cervix; Screen for sexually transmitted diseases Discharge Disposition: Discharge to home or self care Social History Tobacco Use Types Packs/Day Years [...] on file Legal Sex Female 10:37 AM STRING LASTER Gender Identity Female 02/14/2021 10:37 PM CDT Sexual Orientation Straight 02/14/2021 10 :37 PM CDT Occupation Industry Job Start Date Job End Date Not on file Not on file Not on file Not on file documented as of this encounter Medications at Time of Discharge doxylamine-pyridoxin e, vit B6, (DICLEGIS) 10-10 mg tablet Take 1 tablet by mouth 2 (two) times a day 04/30/2025 FLUoxetine (PROzac) 20 mg capsuleIndications:M ild episode of recurrent major depressive disorder,Generalized anxiety disorder TAKE 1 CAPSULE BY MOUTH EVERY DAY 90 capsule 04/06/2022 ondansetron ODT (ZOFRAN-ODT) 4 mg disintegrating tablet Take 1 tablet (4 mg total) by mouth every 8 (eight) hours as needed for nausea or vomiting 30 tablet 2 05/31/2025 documented as of this encounter Discharge Disposition Disposition Code Departure Means Destination Discharge to home or self care documented in this encounter Plan of Treatment Pending Results Name Type Priority Associated Diagnoses Date/Time Pap and High Risk HPV and Genotyping (Cytology Component) Pathology and Cytology Routine Screening for malignant neoplasm of cervix 05/31/2025 11:26 AM STRING LASTER Scheduled Orders Name Type Priority Associated Diagnoses Order Schedule Pap and High Risk HPV and Genotyping (Cytology Component) Pathology and Cytology Routine Screening for malignant neoplasm of cervix Once for 1 Occurrences starting 05/31/2025 until 05/31/2025 documented as of this encounter Procedures Procedure Name Priority Date/Time Associated Diagnosis Comments HIGH RISK HPV DNA DETECTION WITH GENOTYPING Routine 05/31/2025 3:53 PM STRING LASTER Screening for malignant neoplasm of cervix N. GONORRHOEAE/C. TRACHOMATIS AMPLIFICATION Routine 05/31/2025 3:53 PM STRING LASTER Screen for sexually transmitted diseases TRICHOMONAS VAGINALIS PCR Routine 05/31/2025 3:53 PM STRING LASTER Screen for sexually transmitted diseases documented in this encounter Results * Trichomonas vaginalis PCR Thin prep-Endocervical (05/31/2025 3:53 PM STRING LASTER) Trichomonas DNA Not Detected [facility] Comment: Interpretive Data This assay detects Trichomonas vaginalis by nucleic acid amplification testing (NAAT). This assay has been cleared by the [place] Food and Drug administration. The performance characteristics of this test have been verified by the [facility] Molecular Infectious Disease laboratory. The performance of this test has not been evaluated in individuals less than 18 years of age. Current Interpretive Data was last revised on 2023. Testing performed by: [facility], [address] [place]., [address] Thin prep-Endocervica l 05/31/2025 3:53 PM STRING LASTER 06/01/2025 1:50 PM STRING LASTER Alaina Teague LAB MICROBIOLOGY - GENE RAL ORDERABLES Final Result Performing Organization Address City/[facility]/ZIP Co de Phone Number [facility] HER[facility] [address] [place] [address] [facility] * N. gonorrhoeae/C. trachomatis Amplification Thin prep-Endocervical (05/31/2025 3:53 PM STRING LASTER) C. trachomatis Not Detected [facility] Comment:Testing performed by : [facility], [address] [place] [address]., [address] N. gonorrhoeae Not Detected [facility] Comment: Interpretive Data This assay detects Chlamydia trachomatis and Neisseria gonorrhoeae by nucleic acid amplification testing (NAAT). This assay has been cleared by the [place] Food and Drug administration. The performance characteristics of this test have been verified by the [facility] Molecular Infectious Disease laboratory. The performance characteristics of this test have not been evaluated in individuals less than 14 years of age. Current Interpretive Data was last revised on 2023. Testing performed by: [facility], [address] [place]., [address] Thin prep-Endocervica l 05/31/2025 3:53 PM STRING LASTER 06/01/2025 1:50 PM STRING LASTER Alaina Teague LAB MICROBIOLOGY - GENE RAL ORDERABLES Final Result [facility] [place]ED[place] [address] [place] [address] [facility] * (ABNORMAL) High Risk HPV DNA Detection with Genotyping (Molecular component) (05/31/2025 3:53 PM STRING LASTER) HPV HR 16 Not Detected Not Detected [facility] Comment:Testing performed by : [facility], [address] [place]., [address] HPV HR 18 Not Detected Not Detected [facility] Comment:Testing performed by : [facility], [address] [place]., [address] HPV HR Non 16/18 Detected(A) Not Detected [facility] Comment: Interpretive Data Nucleic acid amplification for detection of high-risk Human Papilloma virus (HPV) is performed by the [facility] 6800 HPV test. This assay specifically detects HPV-16 and HPV-18 genotypes. The following HPV genotypes are detected as high-risk HPV: HPV-31, 33, 35, ,39, 45, 51, 52, 56, 58, 59, 66, and 68. This assay has been approved by the [place] Food and Drug Administration for detection of HPV in cervical specimens collected by a physician using an endocervical brush/spatula or cervical broom and placed in the ThinPrep Pap Test PreservCyt collection containers. The performance characteristics of this test have been verified by the [facility] Molecular Infectious Disease laboratory. Correlate with separately reported cytology results, as applicable. Interpretive data last revised 22 Testing performed by: [facility], [address] [place] [address]., [address] Endocervical 05/31/2025 3:53 PM STRING LASTER 06/01/2025 1:50 PM STRING LASTER Narrative [facility] - 06/01/2025 10:06 PM STRING LASTER Clinical history and diagnosis->Liquid-based PAP test with high risk HPV test- Z12.4 Number of vials->1 Testing type->Screening Last menstrual period (date if known)->Unknown Menstrual status-> Contraceptive use->None Alaina Teague DO LAB BODY FLUIDS AND STO OLS ORDERABLES Final Result [facility] [address] Department of Laboratories [place], [place] [id number] [facility] documented in this encounter Visit Diagnoses Diagnosis Screening for malignant neoplasm of cervix Screening for malignant neoplasm of the cervix Screen for sexually transmitted diseases Screening examination for venereal disease documented in this encounter Care Teams Artist'S Representative Relationship Specialty Start Date End Date Unknown, Notinfile PCP - General 04/23/25 Alaina Teague DO [address] [place], [place] [address] Consulting Physician Obstetrics and Gynecology 02/08/21 documented as of this encounter
--- OUTSIDE RECORDS SUMMARY | 2025-06-02 12:37 | XMS_ITS | Clinical Summary ---
Author Organization [facility] Address [address] [place] [address] Phone Care Team Providers Care Food And Beverage Checker Name Role Phone Kristopher Schmitt MD [...] patient's age to complete this topic Insurance [employer] [facility] Care Teams Food And Beverage Checker Relationship Specialty Start Date End Date Kristopher Schmitt MD [address] [facility] , [address] [address] PCP - General Family Medicine 10/27/22
--- OUTSIDE RECORDS SUMMARY | 2025-06-02 12:37 | XMS_ITS | Clinical Summary ---
Author Organization [facility] Address [address] [place] [address] Care Team Providers Care Mineral Surveyor Name Role Phone Unavailable Primary Care Provider Unavailabl e Allergies No known active allergies Medications FLUoxetine (PROzac) 20 mg capsule Take 1 Capsule by mouth daily. 03/22/2025 Active PNV/iron/omega3 /folic ac/f.a.1 (PRE-NICKY MULTIVITAMINS/M INERALS ORAL) Take by mouth. Active Active Problems No known active problems Encounters Date Type Department Care Team Description 06/01/2025 External Device Data [facility] ABSTRACTION Provider, Abstract 06/01/2025 Orders Only [facility] [address] [place] [address] Angel Kennedy MD 05/27/2025 4:30 PM DIRECTOR EXECUTIVE COMMUNICATIONS Telephone Check Up [facility] [address] [place] [address] Angel Kennedy MD Iron overload (Primary Dx) 05/04/2025 External Device Data [facility] ABSTRACTION Provider, Abstract 05/04/2025 External Device Data [facility] ABSTRACTION Provider, Abstract 05/04/2025 External Device Data [facility] ABSTRACTION Provider, Abstract 04/29/2025 10:30 AM DIRECTOR EXECUTIVE COMMUNICATIONS Office Visit [facility] [address] [place] [address] Helena Brian MD Anemia affecting in first [...] Comments Blood Pressure 107/72 04/29/2025 10:11 AM DIRECTOR EXECUTIVE COMMUNICATIONS Pulse 83 04/29/2025 10:11 AM DIRECTOR EXECUTIVE COMMUNICATIONS Temperature 37.1 C (98.8 F) 04/29/2025 10:11 AM DIRECTOR EXECUTIVE COMMUNICATIONS Respiratory Rate 15 04/29/2025 10:11 AM DIRECTOR EXECUTIVE COMMUNICATIONS Oxygen Saturation 98% 04/29/2025 10:11 AM DIRECTOR EXECUTIVE COMMUNICATIONS Inhaled Oxygen Concentration - - Weight 67 kg (147 lb 12.8 oz) 04/29/2025 10:11 A M DIRECTOR EXECUTIVE COMMUNICATIONS Height 167.6 cm (5' 6) 04/29/2025 10:11 AM DIRECTOR EXECUTIVE COMMUNICATIONS Body Mass Index 23.86 04/29/2025 10:11 AM DIRECTOR EXECUTIVE COMMUNICATIONS Plan of Treatment Upcoming Encounters Date Type Department Care Team (Late st Contact Info) Description 06/16/2025 1:00 PM DIRECTOR EXECUTIVE COMMUNICATIONS Office Visit [facility] - [place] [address] [facility] [address] [place] [address] Angel Kennedy MD [address] [facility] [address] [place] [address] Health Maintenance Due Date Last Done Comments DTAP/TDAP/TD VACCINES (1 - Tdap) 2009 HEPATITIS B VACCINES (1 of 3 - 19+ 3-dose series) 06/10 HPV/Cotest (21-29) 2011 CERVICAL CANCER SCREENING 2020 HPV/Cotest (30-65) 2020 PAP SMEAR 2020 INFLUENZA VACCINE (#1) 2025 HPV VACCINES (No Doses Required) Completed Procedures Procedure Name Priority Date/Time Associated Diagnosis Comments IRON, TIBC, AND PERCENT SATURATION Routine 05/31/2025 7:45 AM DIRECTOR EXECUTIVE COMMUNICATIONS COMPREHENSIVE METABOLIC PANEL Routine 05/31/2025 7:44 AM DIRECTOR EXECUTIVE COMMUNICATIONS CBC WITH AUTODIFFERENTIAL Routine 2024 7:42 AM DIRECTOR EXECUTIVE COMMUNICATIONS from Last 3 Months Results * IRON, TIBC, AND PERCENT SATURATION (05/31/2025 7:45 AM DIRECTOR EXECUTIVE COMMUNICATIONS) Blood us Angel Kennedy MD CHEMISTRY ORDERABLES Final Resu lt * COMPREHENSIVE METABOLIC PANEL (05/31/2025 7:44 AM DIRECTOR EXECUTIVE COMMUNICATIONS) Blood us Angel Kennedy MD CHEMISTRY ORDERABLES Final Resu lt * CBC WITH AUTODIFFERENTIAL (05/31/2025 7:42 AM DIRECTOR EXECUTIVE COMMUNICATIONS) Blood us Angel Kennedy MD HEMATOLOGY ORDERABLES Final Res ult from Last 3 Months Insurance [facility] MEDICAID [facility] [id number] Member Subscriber Plan / Payer (Ef fective 2025-Present) Name:Sandra Contreras Relation to Subscriber:Self Name:Sandra Contreras Dorian Payer ID:[id number] (NAIC) Type:HMO Address: [facility] [id number] [place] [id number]
--- OUTSIDE RECORDS SUMMARY | 2025-06-02 12:37 | XMS_ITS | Patient Health Record ---
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 Plan Of Treatment Pending Test Test Name Order Date Test, Urine 04/10/2017 CBC With Differential/Platelet 7 DME_AFO (ankle foot orthosis) 07/25/2017 Insurance Providers Payer Name Payer Address Payer Phone Subscriber Number Group Number Insured Name Patient Relationship to Insured Coverage Start Date Coverage End Date [facility] [employer] Plus [address] [place] [phone] [id number] Sandra Contreras Self - patient is the insured Medical (General) History Medical History History ICD Code Back pain Numbness in hands/feet Disc degeneration Herniated disc Denies h/o emotional/psychiatric disorde r Surgical History Surgery Date(Month/Year) Low back fusion 2004 Low back 2010 Stomach 2010 L3-5 LDL with disc L4-5 2017
--- OUTSIDE RECORDS SUMMARY | 2025-06-02 12:37 | XMS_ITS | Clinical Summary ---
Author Organization [facility] Address [address] [place] [address] Care Team Providers Care Loan And Credit Manager Name Role Phone None, Provider MD Primary [...] on file Legal Sex Female 6:12 PM DELIVERY PERSON Gender Identity Not on file Sexual Orientation Not on file Last Filed Vital Signs Vital Sign Reading Time Taken Comments Blood Pressure 101/67 08/13/2023 6:19 PM DELIVERY PERSON Pulse 91 08/13/2023 6:19 PM DELIVERY PERSON Temperature 36.9 C (98.4 F) 08/13/2023 6:19 PM DELIVERY PERSON Respiratory Rate 12 08/13/2023 6:19 PM DELIVERY PERSON Oxygen Saturation 97% 08/13/2023 6:19 PM DELIVERY PERSON Inhaled Oxygen Concentration - - Weight 66.7 kg (147 lb) 08/13/2023 6:19 PM DELIVERY PERSON Height 167.6 cm (5' 6) 08/13/2023 6:19 PM DELIVERY PERSON Body Mass Index 23.73 08/13/2023 6:19 PM DELIVERY PERSON Plan of Treatment Health Maintenance Due Date [...] Cancer Screening with HPV 2020 PHQ-2 (Physician [place]) 06/10/2024 08/13/2023 COVID-19 Vaccine ( - 2024-2 [...] this topic Insurance [employer] Care Teams Loan And Credit Manager Relationship Specialty Start Date End Date None, Provider, PCP - General UNKNOWN PHYSICIAN SPECIALTY 08/13/23
--- OUTSIDE RECORDS SUMMARY | 2025-06-02 12:38 | XMS_ITS | Clinical Summary ---
Author Organization [facility] Physician Office Building [address] [place] [phone] Care Team Providers Care Vine Pruner Name Role Phone Alaina Teague DO Unavailable [phone] Unknown, Notinfile Primary Care Provider Unavail able [...] for nausea or vomiting 30 tablet 2 5 Active ondansetron ODT (ZOFRAN-ODT) 4 mg disintegrating tablet DISSOLVE 1 TABLET ON THE TONGUE EVERY 8 HOURS 2 025 Discontin ued(Patie nt Reported) nicotine (NICODERM CQ) 14 mgIndications:Smok ing Cessation Place 1 patch on the skin daily 025 Discontin ued(Patie nt Reported) Active Problems Problem Noted Date Diagnosed Date Anxiety and depression 05/31/2025 Overview (05/31/2025): On Prozac 20 mg daily. S/p counseling on SSRI use in . Encounter for supervision of normal in first trimester 05/31/2025 Overview (05/31/2025): Dated by 6w5d PNL: ordered today GC/CT: collected today UCx: ordered today Pap: collected today Genetics: NIPT ordered Multigravida of advanced maternal age in first t rimester 05/31/2025 Overview (05/31/2025): S/p counseling. NIPT ordered and will plan for LD ASA for Pre-E PPx. History of abnormal cervical Pap smear Overview (05/31/2025): NILM +HPV 01/11/21. Repeat collected at [facility]. History of back surgery 05/31/2025 Overview (05/31/2025): Patient states she has had three total back surgeries in her lumbar spine. There is not any hardware in there but missing vertebrae. Unclear significance in regards to epidural as she is unsure exact location. Will attempt to request records and plan for anesthesia consult to be on the safe side. History of seizures as a child 12/28/2020 Assessment & Plan (12/28/2020 3:18 PM CDT): - had tehm when she was young - when she was 14 and 15 - last sizure - tested and after all was studies were negative, told it was anxiety and mental health problem History of arthrodesis 03/13/2011 Bulging lumbar disc 01/10/2011 Estimated Date of Delivery Comme nts Yes 12/08/2025 Based on Ultraso und Resolved Problems Problem Noted Date Diagnosed Date Resolved Date Preventative health care 10/16/2022 Assessment & [...] Numbness and tingling in left hand 10/16/2022 05/31/2025 Overview (04/03/2023): EMG/NCV 04/01 IMPRESSION This is [...] work as well 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 Generalized anxiety disorder 01/15/2022 05/31/2025 Assessment & Plan (01/21/2023 10:40 AM CDT): [...] recommended. Thai's neuroma of left foot 06/28/2021 05/31/2025 Overview (06/28/2021): new, not at goal, discussed treatment options, first line would be metatarsal pads and if not we can schedule her for steroid injections Pelvic mass 12/29/2020 10/16/2022 Overview (12/29/2020): Noted on CT 12/29/2020: IMPRESSION: Large cystic pelvic mass. Surgical consultation recommended. There is mass effect on the sigmoid colon. Tobacco use disorder 12/28/2020 025 Assessment & Plan (01/21/2023 10:44 AM CDT): [...] 06/10/2006 Smokeless Tobacco Never Used History of depression 12/28/20202024 Assessment & Plan (12/28/2020 3:19 PM CDT): - in complete remission - used to be on medication, off for several years Closed fracture of left distal radius 07/21/2020 10/16/2022 Encounters Date Type Department Care Team Description 05/31/2025 3:53 PM SHOVEL ENGINEER - 05/31/2025 11:59 PM SHOVEL ENGINE[place] [address] Screening for malignant neoplasm of cervix; Screen for sexually transmitted diseases Discharge Disposition: Discharge to home or self care 05/31/2025 3:00 PM SHOVEL ENGINEER Office Visit [facility] [address] [place] [phone] Alaina Teague, DO Supervision of normal first , antepartum (Primary Dx); Screen for sexually transmitted diseases; Screening for malignant neoplasm of cervix 05/31/2025 Orders Only [facility] [address] [place] [phone] Alaina Teague, Encounter for supervision of normal first in first trimester (Primary Dx); 12 weeks gestation of ; Multigravida of advanced maternal age in first trimester 05/05/2025 Telephone [facility] [address] [place] [phone] Alaina Teague, Patient issue/concern 04/23/2025 Orders Only [facility] [address] [place] [phone] Alaina Teague, Encounter to determine viability of , single or unspecified fetus (Primary Dx) from Last 3 Months Immunizations Immunization Administration Dates Next Due Influenza, Unspecified 10/16/2022(Deferr ed: Patient Refused),03/10/2021(Deferred: Patient Refused),03/10/2020(Deferred: Patient Refused),03/10/2020(Deferred: Patient Refused) Surgical History Surgery Date Site/Laterality Comments BACK SURGERY DIAGNOSTIC LAPAROSCOPY ABDOMINAL SURGERY 2010 SPINE SURGERY 2004 and 2010 disc fusions Medical History Medical History Date [...] on file Legal Sex Female 10:37 AM SHOVEL ENGINEER Gender Identity Female 02/14/2021 10:37 PM CDT [...] Estimated Date of Delivery 05/31/2025 - Present (06/02/2025) 12/08/2025 (set by Me yessica Teague DO on 05/31/2025 based on Ultrasound on 04/19/2025) Dating Summary Based On [place] GA Diff Last Menstrual Period (LMP Unknown) Ultrasound on 04/19/2025 12/08/2025 Working GA:6w5d Vitals Pregravid Weight Height TWG (As of 06/02/2025) Pregrav id BMI 165.1 cm (5' 5) Notes Progress Notes - Office Visi t - 05/31/2025 - GA:12w5d 05/31/2025 - 12w5d - Alaina Teague DO Initial OB Visit Subjective : Sandra Contreras is a 34 y.o., at 12w5d, based on 1st trimester U/S, who presents for initial visit. She has been struggling with all day sickness. Her primary prescribed Diclegis but that has not seemed to help a ton. Of note, she is currently being tested for hemochromatosis by hematology. She states her labs should be back next week. Menstrual History: No LMP recorded (lmp unknown). Patient is . Sexual History: OB History 1 Para 0 Term 0 0 AB 0 Living 0 SAB 0 IAB 0 Ectopic 0 Multiple 0 Live Births 0 # Outcome Date GA Labor/2nd Weight Sex Type Anes PTL Lv A1 A5 1 Current Past medical, surgical, and CERTIFIED TEACHER ASSISTANT history fully reviewed. Review of Systems Constitutional: Negative for fatigue, fever and unexpected weight change. Respiratory: Positive for shortness of breath. Negative for wheezing. Cardiovascular: Negative for chest pain and palpitations. Gastrointestinal: Positive for abdominal pain. Negative for blood in stool, nausea and vomiting. Indigestion, Heartburn Genitourinary: Positive for frequency. Negative for dysuria, hematuria, urgency, vaginal bleeding and vaginal discharge. Musculoskeletal: Positive for back pain. Skin: Negative for rash. Dryness Objective : BP 116/60 Ht 165.1 cm (5' 5) Wt 152 lb (68.9 kg) LMP (LMP Unknown) BMI 25.29 kg/m Physical OB Exam: Last filed by Alaina Teague DO on 05/31/2025 4:33 PM General Physical Exam HEENT: normal Heart: normal Skin: normal Lungs: normal Extremities: normal Neurological: normal Abdomen: normal Pelvic Exam Vulva: normal Vagina: normal Cervix: normal Adnexa: normal Rectum: normal Spines: average Subpubic Arch: normal Pelvic Type: gynecoid FHR: 160's Assessment: Patient is a 34 y.o., at 12w5d, with a evans confirmed on U/S\. Problem list reviewed and updated: Problems (from 05/31/25 to present) Problem Noted Diagnosed Resolved Anxiety and depression 05/31/2025 by Alaina Teague DO No Overview Signed 05/31/2025 4:30 PM by Alaina Teague DO On Prozac 20 mg daily. S/p counseling on SSRI use in . Encounter for supervision of normal in first trimester 05/31/2025 by Alaina Teague DO No Overview Signed 05/31/2025 4:29 PM by Alaina Teague DO Dated by 6w5d PNL: ordered today GC/CT: collected today UCx: ordered today Pap: collected today Genetics: NIPT ordered Multigravida of advanced maternal age in first trimester 05/31/2025 by Alaina Teague DO No Overview Signed 05/31/2025 4:30 PM by Alaina Teague DO S/p counseling. NIPT ordered and will plan for LD ASA for Pre-E PPx. History of abnormal cervical Pap smear 05/31/2025 by Alaina Teague DO No Overview Signed 05/31/2025 4:31 PM by Alaina Teague DO NILM +HPV 8/4/21. Repeat collected at [facility]. History of back surgery 05/31/2025 by Alaina Teague DO No Overview Signed 05/31/2025 4:32 PM by Alaina Teague DO Patient states she has had three total back surgeries in her lumbar spine. There is not any hardware in there but missing vertebrae. Unclear significance in regards to epidural as she is unsure exact location. Will attempt to request records and plan for anesthesia consult to be on the safe side. Plan: vitamin with DHA discussed Labs ordered Discussed genetic testing - patient plans NIPT Additional concerns: Nausea - Zofran sent to pharmacy, possible MFM consult if she does have hemochromatosis but will discuss further once this is confirmed Follow up in 4 weeks. Alaina Teague DO 05/31/2025 EL ENGINEER Last Filed Vital Signs Vital Sign Reading Time Taken Comments Blood Pressure 116/60 05/31/2025 2:57 PM SHOVEL ENGINEER Pulse 84 01/21/2023 10:21 AM CDT Temperature 36.8 C (98.2 F) 10/16/2022 10:22 AM CDT Respiratory Rate 14 01/09/2022 2:13 PM CDT Oxygen Saturation 98% 01/21/2023 10:21 AM CDT Inhaled Oxygen Concentration - - Weight 68.9 kg (152 lb) 05/31/2025 2:57 PM SHOVEL ENGINEER Height 165.1 cm (5' 5) 05/31/2025 2:57 PM SHOVEL ENGINEER Body Mass Index 25.29 05/31/2025 2:57 PM SHOVEL ENGINEER Plan of Treatment Health Maintenance Due Date Last Done Comments Hepatitis C Screening 1990 Varicella Vaccines (1 of 2 - 13+ 2-dose series) 2003 Hepatitis B Screening 2008 DTaP/Tdap/Td Vaccine (2 - Td or Tdap) 04/17/2016 04/17/2006 HPV Vaccines (1 - 3-dose SCDM series) 2017 Regular Well Visit/Exam 18-64 10/17/2023 10/16/2022 Depression Screening 01/22/2024 01/21/2023, 10/16/2022, 01/09/2022, Additional history exists Influenza Vaccine (#1) 2025 Cervical Cancer Screening 05/31/2026 05/31/2025, 09/2020 Pneumococcal vaccine <65 Aged Out No longer eligible based on patient's age to complete this topic Procedures Procedure Name Priority Date/Time Associated Diagnosis Comments HIGH RISK HPV DNA DETECTION WITH GENOTYPING Routine 05/31/2025 3:53 PM SHOVEL ENGINEER Screening for malignant neoplasm of cervix TRICHOMONAS VAGINALIS PCR Routine 05/31/2025 3:53 PM SHOVEL ENGINEER Screen for sexually transmitted diseases N. GONORRHOEAE/C. TRACHOMATIS AMPLIFICATION Routine 05/31/2025 3:53 PM SHOVEL ENGINEER Screen for sexually transmitted diseases from Last 3 Months Results * (ABNORMAL) High Risk HPV DNA Detection with Genotyping (Molecular component) (05/31/2025 3:53 PM SHOVEL ENGINEER) HPV HR 16 Not Detected Not Detected [facility] Comment:Testing performed by : [facility], [address] [place] [address] HPV HR 18 Not Detected Not Detected [facility] Comment:Testing performed by : [facility], [address] [place]., [address] HPV HR Non 16/18 Detected(A) Not Detected [...] this test have been verified by the [facility] Molecular Infectious Disease laboratory. Correlate with separately reported cytology results, as applicable. Interpretive data last revised 22 Testing performed by: [facility], [address] [place]., [address] Endocervical 05/31/2025 3:53 PM SHOVEL ENGINEER 06/01/2025 1:50 PM SHOVEL ENGINEER Narrative [facility] - 06/01/2025 10:06 PM SHOVEL ENGINEER Clinical history and diagnosis->Liquid-based PAP test with high risk HPV test- Z12.4 Number of vials->1 Testing type->Screening Last menstrual period (date if known)->Unknown Menstrual status-> Contraceptive use->None Alaina Teague DO LAB BODY FLUIDS AND STO OLS ORDERABLES Final Result [place] [address] [address] Department [place] [address] [facility] * N. gonorrhoeae/C. trachomatis Amplification Thin prep-Endocervical (05/31/2025 3:53 PM SHOVEL ENGINEER) C. trachomatis Not Detected [facility] Comment:Testing performed by : [facility], [address] [place] [address] N. gonorrhoeae Not Detected [facility] Comment: Interpretive Data This assay detects Chlamydia trachomatis and Neisseria gonorrhoeae by nucleic acid amplification testing (NAAT). This assay has been cleared by the [place] Food and Drug administration. The performance characteristics of this test have been verified by the [facility] Molecular Infectious Disease laboratory. The performance characteristics of this test have not been evaluated in individuals less than 14 years of age. Current Interpretive Data was last revised on 2023. Testing performed by: [facility], [address] [place]., [address] Thin prep-Endocervica l 05/31/2025 3:53 PM SHOVEL ENGINEER 06/01/2025 1:50 PM SHOVEL ENGINEER us Alaina Teague DO LAB MICROBIOLOGY - GENE RAL ORDERABLES Final Result Performing Organization Address [facility]/[place] [address] [address] Department [place] [address] [facility] * Trichomonas vaginalis PCR Thin prep-Endocervical (05/31/2025 3:53 PM SHOVEL ENGINEER) Trichomonas DNA Not Detected [facility] Comment: Interpretive Data This assay detects Trichomonas vaginalis by nucleic acid amplification testing (NAAT). This assay has been cleared by the [place] Food and Drug administration. The performance characteristics of this test have been verified by the [facility] Molecular Infectious Disease laboratory. The performance of this test has not been evaluated in individuals less than 18 years of age. Current Interpretive Data was last revised on 2023. Testing performed by: [facility], [address] [place]., [address] Thin prep-Endocervica l 05/31/2025 3:53 PM SHOVEL ENGINEER 06/01/2025 1:50 PM SHOVEL ENGINEER Alaina Shea Ho HARDY LAB MICROBIOLOGY - GENE RAL ORDERABLES Final Result Performing Organization Address [facility] [place] [address] [address] [place] [address] [facility] from Last 3 Months Insurance [facility] CHOICE PLUS [facility] U[employer] CHOICE PLUS Care Teams Vine Pruner Relationship Specialty Start Date End Date Unknown, Notinfile PCP - General 04/23/25 Alaina Teague DO [address] [place] [address] Consulting Physician Obstetrics and Gynecology 02/08/21
--- OUTSIDE RECORDS SUMMARY | 2025-06-02 12:38 | XMS_ITS | Encounter Summary ---
Author Organization [facility] [employer] [facility] Address [address] [place] [address] Care Team Providers Care Claim Approver Name Role Phone Unavailable Primary Care Provider Unavailabl e Encounter Details Date Type Department Care Team ([facility] Contact Info) Description 06/01/2025 Orders Only [facility] Oncology and Hematology [facility] [address] [place] [address] Angel Kennedy MD [address] [place] [phone] Social History Tobacco Use Types Packs/Day Years [...] on file Sexual Orientation Not on file documented as of this encounter Plan of Treatment Upcoming Encounters Date Type Department Care Team ([facility] Contact Info) Description 06/16/2025 1:00 PM EMPLOYMENT OFFICE CLERK Office Visit [facility] Oncology and Hematology - [place] [address] [place] [address] Angel Kennedy MD [address] [place] [phone] documented as of this encounter Procedures Procedure Name Priority Date/Time Associated Diagnosis Comments IRON, TIBC, AND PERCENT SATURATION Routine 05/31/2025 7:45 AM EMPLOYMENT OFFICE CLERK COMPREHENSIVE METABOLIC PANEL Routine 05/31/2025 7:44 AM EMPLOYMENT OFFICE CLERK CBC WITH AUTODIFFERENTIAL Routine 2024 7:42 AM EMPLOYMENT OFFICE CLERK documented in this encounter Results * IRON, TIBC, AND PERCENT SATURATION (05/31/2025 7:45 AM EMPLOYMENT OFFICE CLERK) Blood us Angel Kennedy MD CHEMISTRY ORDERABLES Final Resu lt * COMPREHENSIVE METABOLIC PANEL (05/31/2025 7:44 AM EMPLOYMENT OFFICE CLERK) Blood Result Vivian Kennedy MD CHEMISTRY ORDERABLES Final Resu lt * CBC WITH AUTODIFFERENTIAL (05/31/2025 7:42 AM EMPLOYMENT OFFICE CLERK) Blood us Angel Kennedy MD HEMATOLOGY ORDERABLES Final Res ult documented in this encounter Visit Diagnoses Not on filedocumented in this encounter
--- OUTSIDE RECORDS SUMMARY | 2025-06-02 12:38 | XMS_ITS | Encounter Summary ---
Author Organization [facility] Address [address] [place] [address] Care Team Providers Care Squad Sergeant Name Role Phone Unavailable Primary Care Provider Unavailabl e Encounter Details Date Type Department Care Team (Late st Contact Info) Description 06/01/2025 External Device Data [place] ABSTRACTION Provider, Abstract NO ADDRESS ON FILE Social History Tobacco Use Types Packs/Day Years [...] st Contact Info) Description 06/16/2025 1:00 PM MACHINE DEICER ELEMENT WINDER Office Visit [facility] Oncology and Hematology - [place] [address] [place] [address] [facility] [address] [place] [address] Angel Kennedy MD [address] [facility] [address] [place] [address] documented as of this encounter Visit Diagnoses Not on filedocumented in this encounter
[2025-06-02 13:06] LABS: Hematocrit 35.4 % (35.0-49.0); Hemoglobin 12.6 g/dL (12.0-15.0); Immature Granulocyte Percent A 0.3 % (0.0-0.0); Lymphocytes Absolute Auto 2.01 K/mm3 (1.10-4.50); Mean Corpuscular HGB Conc 35.6 g/dL (32-36); Mean Corpuscular Hemoglobin 33.1 pg (27.0-31.0); Mean Corpuscular Volume 92.9 fL (78.0-102.0); Nucleated Red Blood Cells Absolute Auto 0.00 K/mm3 (0.00-0.00); Nucleated Red Blood Cells Perc 0.0 % (0-0.0); Platelet Count Result 348 K/mm3 (150-420); Red Blood Count 3.81 M/mm3 (4.20-5.40); White Blood Count 7.9 K/mm3 (4.8-10.8)
[2025-06-02 13:32] LABS: Cannabinoid Screen Urine Negative (Negative)
[2025-06-02 13:56] LABS: HIV 1 P24 AG Negative (Negative); HIV 1/2 AB Negative (Negative)
[2025-06-03 05:08] LABS: Varicella-Zoster Ab, IgG Reactive (Non Reactive)
[2025-06-03 06:07] LABS: RPR Non Reactive (Non Reactive)
[2025-06-06 05:56] LABS: Hepatitis B Surface Antigen Negative; Hepatitis B Surface Antigen Negative (Negative)
== END 2025-06-02 12:32 | disposition home or self-care (01) ==
PROVIDERS: PCP Nurse Practitioner Family; Visit Provider Obstetrics & Gynecology Obstetrics
DX: O09.521 Supervision of elderly multigravida, first trimester (principal)
CPT/HCPCS: 36415; 80307; 81220; 81329; 85025; 86592; 86762; 86787; 86803; 86850; 86900; 86901; 87086; 87340; 87806

== ENCOUNTER 2025-06-09 12:25 | Outpatient (CLI) | payer OTHER, SELFPAY ==
--- OUTSIDE RECORDS SUMMARY | 2025-06-09 12:29 | XMS_ITS | Clinical Summary ---
Author Organization [facility] Address [address] [place] [address] Care Team Providers Care Traveling Clerk Name Role Phone None, Provider MD Primary [...] on file Legal Sex Female 6:12 PM SLASHER HAND Gender Identity Not on file Sexual Orientation Not on file Last Filed Vital Signs Vital Sign Reading Time Taken Comments Blood Pressure 101/67 08/13/2023 6:19 PM SLASHER HAND Pulse 91 08/13/2023 6:19 PM SLASHER HAND Temperature 36.9 C (98.4 F) 08/13/2023 6:19 PM SLASHER HAND Respiratory Rate 12 08/13/2023 6:19 PM SLASHER HAND Oxygen Saturation 97% 08/13/2023 6:19 PM SLASHER HAND Inhaled Oxygen Concentration - - Weight 66.7 kg (147 lb) 08/13/2023 6:19 PM SLASHER HAND Height 167.6 cm (5' 6) 08/13/2023 6:19 PM SLASHER HAND Body Mass Index 23.73 08/13/2023 6:19 PM SLASHER HAND Plan of Treatment Health Maintenance Due [...] Cancer Screening with HPV 2020 PHQ-2 (Physician Sandy) 06/10/2024 08/13/2023 COVID-19 Vaccine ( - 2024-2 [...] this topic Insurance [employer] Care Teams Traveling Clerk Relationship Specialty Start Date End Date None, Provider, PCP - General UNKNOWN PHYSICIAN SPECIALTY 08/13/23
--- OUTSIDE RECORDS SUMMARY | 2025-06-09 12:29 | XMS_ITS | Encounter Summary ---
Author Organization [facility] Address [address] [place] [address] Care Team Providers Care Machine Printer Hose Name Role Phone Unavailable Primary Care Provider Unavailabl e Encounter Details Date Type Department Care Team ([facility] Contact Info) Description 06/08/2025 Orders Only [facility] Oncology and Hematology [facility] [address] [place] [address] Angel Kennedy MD [address] [place] [phone] Social History Tobacco Use Types Packs/Day [...] Upcoming Encounters Date Type Department Care Team ([facility] Contact Info) Description 06/16/2025 1:00 PM GROUP FITNESS INSTRUCTOR Office Visit [facility] Oncology and Hematology [facility] [address] [place] [address] Angel Kennedy MD [address] [place] [phone] documented as of this encounter Procedures Procedure Name Priority Date/Time Associated Diagnosis Comments HEREDITARY HEMOCHROMATOSIS DNA MUTATION ANALYSIS Routine 05/31/2025 2:39 PM GROUP FITNESS INSTRUCTOR documented in this encounter Results * HEREDITARY HEMOCHROMATOSIS DNA MUTATION ANALYSIS (05/31/2025 2:39 PM GROUP FITNESS INSTRUCTOR) Angel Kennedy MD CHEMISTRY ORDERABLES COM Final Result documented in this encounter Visit Diagnoses Not on filedocumented in this encounter
--- OUTSIDE RECORDS SUMMARY | 2025-06-09 12:29 | XMS_ITS | Clinical Summary ---
Author Organization [facility] Address [address] [place] [address] Phone Care Team Providers Care Compo Conveyor Operator Name Role Phone Kristopher Schmitt MD Primary [...] patient's age to complete this topic Insurance [employer] [facility] Care Teams Compo Conveyor Operator Relationship Specialty Start Date End Date Kristopher Schmitt MD [address] [facility] , [address] [address] PCP - General Family Medicine 10/27/22
--- OUTSIDE RECORDS SUMMARY | 2025-06-09 12:29 | XMS_ITS | Clinical Summary ---
Author Organization [facility] Physician Office Building [address] [place] [address] Care Team Providers Care C.O.D. Clerk Name Role Phone Alaina Teague DO Unavailable [phone] Unknown, Notinfile Primary Care Provider Unavail able Allergies No known active allergies Medications FLUoxetine (PROzac) 20 mg capsuleIndications :Mild episode of recurrent major depressive disorder,Generaliz ed anxiety disorder TAKE 1 CAPSULE BY MOUTH EVERY DAY 90 capsule 04/06/20 22 Active doxylamine-pyridox ine, vit B6, (DICLEGIS) 10-10 mg tablet Take 1 tablet by mouth 2 (two) times a day 04/30/20 25 Active ondansetron ODT (ZOFRAN-ODT) 4 mg disintegrating tablet Take 1 tablet (4 mg total) by mouth every 8 (eight) hours as needed for nausea or vomiting 30 tablet 2 05/31/20 25 Active ondansetron ODT (ZOFRAN-ODT) 4 mg disintegrating tablet DISSOLVE 1 TABLET ON THE TONGUE EVERY 8 HOURS 11/02/19 22 025 Discontinu ed(Patient Reported) nicotine (NICODERM CQ) 14 mgIndications:Smok ing Cessation Place 1 patch on the skin daily Discontinu ed(Patient Reported) fluconazole (DIFLUCAN) 150 mg tablet Take 1 tablet (150 mg total) by mouth once for 1 dose 1 tablet 06/08/20 025 Active Problems Problem Noted Date Diagnosed Date [...] (05/31/2025): NILM +HPV 01/11/21. Repeat collected at [facility]. History of back surgery 05/31/2025 Overview (05/31/2025): [...] Encounters Date Type Department Care Team Description 06/08/2025 Results Follow-Up [facility] [address] [place] [phone] Alaina Tegaue, Pap and High Risk HPV and Genotyping (Cytology Component) 06/07/2025 Orders Only [facility] [address] [place] [address] Provider, MD Delvin Encounter to determine viability of , single or unspecified fetus 05/31/2025 3:53 PM SAND SHOVELER - 05/31/2025 11:59 PM SAND SHOVELER Hospital Encounter [address] [address] Screening for malignant neoplasm of cervix; Screen for sexually transmitted diseases Discharge Disposition: Discharge to home or self care 05/31/2025 3:00 PM SAND SHOVELER Office Visit [facility] [address] [place] [address] Alaina Teague, Supervision of normal first , antepartum (Primary Dx); Screen for sexually transmitted diseases; Screening for malignant neoplasm of cervix 05/31/2025 Orders Only [facility] [address] [place] [address] Alaina Teague DO Encounter for supervision of normal first in first trimester (Primary Dx); 12 weeks gestation of ; Multigravida of advanced maternal age in first trimester 05/05/2025 Telephone [facility] [address] [place] [address] Alaina Teague DO Patient issue/concern 04/23/2025 Orders Only [facility] [address] [place] [address] Alaina Teague, Encounter to determine viability of [...] on file Legal Sex Female 10:37 AM SAND SHOVELER Gender Identity Female 02/14/2021 10:37 PM CDT [...] Estimated Date of Delivery 05/31/2025 - Present (06/09/2025) 12/08/2025 (set by Me yessica Teague DO on 05/31/2025 based on Ultrasound on 04/19/2025) Dating Summary Based On CASIM[place]O GA Diff Last Menstrual Period (LMP Unknown) Ultrasound on 04/19/2025 12/08/2025 Working GA:6w5d Vitals Pregravid Weight Height TWG (As of 06/09/2025) Pregrav id BMI 165.1 cm (5' 5) Notes Progress Notes - Office Visi t - 05/31/2025 - GA:12w5d 05/31/2025 - 12w5d - Alaina Teague DO Initial OB Visit Subjective : Mony Gil is a 34 y.o., at 12w5d, based [...] A5 1 Current Past medical, surgical, and CONSTRUCTION PROJECT ASSISTANT history fully reviewed. Review of Systems [...] by Alaina Teague DO Dated by 6w5d US PNL: ordered today GC/CT: collected today UCx: [...] PM by Alaina Teague DO NILM +HPV 01/11/21. Repeat collected at [facility]. History of back surgery 05/31/2025 by Alaina [...] in 4 weeks. Alaina Teague DO 05/31/2025 SHOVELER Last Filed Vital Signs Vital Sign Reading Time Taken Comments Blood Pressure 116/60 05/31/2025 2:57 PM SAND SHOVELER Pulse 84 01/21/2023 10:21 AM CDT Temperature 36.8 C (98.2 F) 10/16/2022 10:22 AM CDT Respiratory Rate 14 01/09/2022 2:13 PM CDT Oxygen Saturation 98% 01/21/2023 10:21 AM CDT Inhaled Oxygen Concentration - - Weight 68.9 kg (152 lb) 05/31/2025 2:57 PM SAND SHOVELER Height 165.1 cm (5' 5) 05/31/2025 2:57 PM SAND SHOVELER Body Mass Index 25.29 05/31/2025 2:57 PM SAND SHOVELER Plan of Treatment Health Maintenance Due Date [...] Influenza Vaccine (#1) 2025 Cervical Cancer Screening 05/31/20262024, 05/31/2025, 01/11/2021 Pneumococcal vaccine <65 Aged Out No longer eligible based on patient's age to complete this topic Procedures Procedure Name Priority Date/Time Associated Diagnosis Comments US OB UNDER 14 WEEKS W ENDOVAGINAL Schedule Routine, Read Routine (OP Routine) 06/07/2025 8:50 AM SAND SHOVELER Encounter to determine viability of , single or unspecified fetus HIGH RISK HPV DNA DETECTION WITH GENOTYPING Routine 05/31/2025 3:53 PM SAND SHOVELER Screening for malignant neoplasm of cervix TRICHOMONAS VAGINALIS PCR Routine 05/31/2025 3:53 PM SAND SHOVELER Screen for sexually transmitted diseases N. GONORRHOEAE/C. TRACHOMATIS AMPLIFICATION Routine 05/31/2025 3:53 PM SAND SHOVELER Screen for sexually transmitted diseases PAP AND HIGH RISK HPV, REFLEX TO GENOTYPING Routine 05/31/2025 11:26 AM SAND SHOVELER Screening for malignant neoplasm of cervix from Last 3 Months Results * US Ob Under 14 Weeks W Endovaginal (06/07/2025 8:50 AM SAND SHOVELER) Anatomical Region Laterality Modality Abdomen N/A Ultrasound us Alaina Teague DO IMG OB US PROCEDURES Fi nal Result * (ABNORMAL) High Risk HPV DNA Detection with Genotyping (Molecular component) (05/31/2025 3:53 PM SAND SHOVELER) HPV HR 16 Not Detected Not Detected [facility] Comment:Testing performed by : [facility], [address] [place]., [address] HPV HR 18 Not Detected Not Detected [facility] Comment:Testing performed by : [facility], 1 [facility], [address] HPV HR Non 16/18 Detected(A) Not Detected [...] this test have been verified by the [facility] laboratory. Correlate with separately reported cytology results, as applicable. Interpretive data last revised 22 Testing performed by: [facility], [address] [place] [address], [address] Endocervical 05/31/2025 3:53 PM SAND SHOVELER 06/01/2025 1:50 PM SAND SHOVELER Narrative [facility] - 06/01/2025 10:06 PM SAND SHOVELER Clinical history and diagnosis->Liquid-based PAP test with high risk HPV test- Z12.4 Number of vials->1 Testing type->Screening Last menstrual period (date if known)->Unknown Menstrual status-> Contraceptive use->None us Alaina Teague DO LAB BODY FLUIDS AND STO OLS ORDERABLES Final Result [facility] [address] Department [place] [address] [facility] * N. gonorrhoeae/C. trachomatis Amplification Thin prep-Endocervical (05/31/2025 3:53 PM SAND SHOVELER) C. trachomatis Not Detected [facility] Comment:Testing performed by : [facility], [address] [place] [address]., [address] N. gonorrhoeae Not Detected [facility] Comment: Interpretive Data This assay detects Chlamydia trachomatis and Neisseria gonorrhoeae by nucleic acid amplification testing (NAAT). This assay has been cleared by the [facility] Food and Drug administration. The performance characteristics of this test have been verified by the [facility] laboratory. The performance characteristics of this test have not been evaluated in individuals less than 14 years of age. Current Interpretive Data was last revised on 2023. Testing performed by: [facility], [address] [place] [address]., [address] Thin prep-Endocervica l 05/31/2025 3:53 PM SAND SHOVELER 06/01/2025 1:50 PM SAND SHOVELER Alaina Teague DO LAB MICROBIOLOGY - GENE RAL ORDERABLES Final Result [facility] [address] [place] [address] [facility] * Trichomonas vaginalis PCR Thin prep-Endocervical (05/31/2025 3:53 PM SAND SHOVELER) Trichomonas DNA Not Detected [facility] Comment: Interpretive Data This assay detects Trichomonas vaginalis by nucleic acid amplification testing (NAAT). This assay has been cleared by the [place] Food and Drug administration. The performance characteristics of this test have been verified by the [facility] Disease laboratory. The performance of this test has not been evaluated in individuals less than 18 years of age. Current Interpretive Data was last revised on 2023. Testing performed by: [facility], [address] [place] [address]., [address] Thin prep-Endocervica l 05/31/2025 3:53 PM SAND SHOVELER 06/01/2025 1:50 PM SAND SHOVELER us Alaina Teague DO LAB MICROBIOLOGY - GENE RAL ORDERABLES Final Result [facility] [address] [place] [address] [facility] * (ABNORMAL) Pap and High Risk HPV and Genotyping (Cytology Component) (05/31/2025 11:26 AM SAND SHOVELER) Thin prep (Pap test) 05/31/2025 11:26 AM SAND SHOVELER 05/31/2025 11:26 AM SAND SHOVELER Narrative PATHOLOGY - 06/07/2025 1:01 PM SAND SHOVELER [facility] Department of Pathology [address] [place] [address] Final Report with Addendum Note to Patients: This report may contain a detailed description of human tissue sent by a health care provider to the laboratory for pathologic evaluation. The content of this report is essential for diagnosis and may provide important critical findings. This information may be unfamiliar to patients to review without a medical professional present. It is advised that the patient review this report in the presence of a health care provider who can answer questions and explain the details. Patient Name: MONY GIL Address: [address] [place] [address]- Gender: F : 1990 (Age: 34) Service: Location: [facility] : [id number] [facility] [id number] Patient Type: SPECIMEN Taken: 05/31/2025 Received: 05/31/2025 Accessioned:: 06/01/2025 Reported: 06/07/2025 Physician(s): Omar Trotter D.O. Diagnosis: SOURCE OF SPECIMEN SCREENING THIN PREP IMAGED PAP w/ HPV: STATEMENT OF ADEQUACY - Specimen satisfactory for interpretation; endocervical/transformation zone component absent or insufficient GENERAL CATEGORIZATION: - Epithelial cell abnormality INTERPRETATION: - Low grade squamous intraepithelial lesion (LSIL) encompassing HPV/mild dysplasia/MARIA R I - Fungal organisms present, morphologically consistent with shelby species DONNA Bolden(ASCP)Scott Padron M.D. Report Electronically Reviewed and Signed Out By Scott Padron M.D. 06/07/2025 13:01:02Addenda: HPV Test Interpretation HPV HR 16- Not Detected HPV HR 18- Not Detected HPV HR non 16/18- Detected Interpretive Data Nucleic acid amplification for detection of high-risk Human Papilloma virus (HPV) is performed by the Mathew Isabella 6800 HPV test. This assay specifically detects HPV-16 and HPV-18 genotypes. The following HPV genotypes are detected as high-risk HPV: HPV-31, 33, 35, 39, 45, 51, 52, 56, 58, 59, 66, and 68. This assay has been approved by the [place] Food and Drug Administration for detection of HPV in cervical specimens collected by a physician using an endocervical brush/spatula or cervical broom and placed in the ThinPrep Pap Test PreservCyt collection containers. The performance characteristics of this test have been verified by the [facility] laboratory. Correlate with reported cytology results, as applicable. Testing performed by: [facility], [address] [place]., [address] CLIA # [id number] Interpretive data last revised 22 DONNA Albright(ASCP)Report Electronically Reviewed and Signed Out By DONNA Albright(ASCP) 06/02/2025 14:19:53 Specimen(s) Received: A: SCREENING THIN PREP IMAGED PAP w/ HPV Clinical History: Menstrual History: The Pap test is a screening test used to aid in the detection of cervical cancer and its precursors. It should not be the sole means by which malignant and premalignant lesions are diagnosed. Both false negative and false positive results may occur. It also has poor sensitivity for the detection of endometrial lesions and should not be used to evaluate suspected endometrial abnormalities. For these reasons it is most important to obtain Pap tests at regular intervals. The performance characteristics of some immunohistochemical stains, fluorescence in-situ hybridization tests and immunophenotyping by flow cytometry cited in this report (if any) were determined by the Surgical Pathology Department at [facility] as part of an ongoing construction quality control manager program and in compliance with federally mandated regulations drawn from the Clinical Laboratory Improvement Act of 1988 (CLIA '88). Some of these tests rely on the use of analyte specific reagents and are subject to specific labeling requirements by the [place] Food and Drug Administration. Such diagnostic tests may only be performed in a facility that is certified by the Department of Health and Human Services as a high complexity laboratory under CLIA '88. The FDA has determined that such clearance or approval is not necessary. This test is used for clinical purposes. It should not be regarded as investigational or for research. Nevertheless, federal rules concerning the medical use of analyte specific reagents require that the following disclaimer be attached to the report: This test was developed and its performance characteristics determined by the Surgical Pathology Department [facility]. It has not been cleared or approved by the U. S. Food and Drug Administration. Alaina Teague DO LAB CYTOLOGY ORDERABLES Final Result Performing Organization Address City/State/[facility] Co de Phone Number PATHOLOGY [address] [place] [address] from Last 3 Months Insurance [facility] CHOICE PLUS [employer] Member Subscriber Plan / Payer (Ef fective 2025-Present) Name:Mony Gil Relation to Subscriber:Self Name:Mony Gil Payer ID:[id number] (NAIC) Group ID:Not on file Type:MEDICAID RISK OTHER Address: ATTN: CLAIMS DEPT [address] [facility] [place] [id number] CHOICE PLUS Care Teams C.O.D. Clerk Relationship Specialty Start Date End Date Unknown, Notinfile PCP - General 04/23/25 Alaina Teague DO [address] [place] [address] Consulting Physician Obstetrics and Gynecology 02/08/21
--- OUTSIDE RECORDS SUMMARY | 2025-06-09 12:29 | XMS_ITS | Encounter Summary ---
Author Organization [facility] Address [address] [place] [address] Care Team Providers Care Meterman Name Role Phone Alaina Teague DO Unavailable [phone] Unknown, Notinfile Primary Care Provider Unavail able Encounter Details Date Type Department Care Team (Late st Contact Info) Description 06/07/2025 Orders Only [facility] [address] [place] [address] ProviderDelvin MD [address] [place], [place] [id number] Encounter to determine viability of , single or unspecified fetus Social History Tobacco Use Types Packs/Day Years [...] on file Legal Sex Female 10:37 AM EDGE RUNNER Gender Identity Female 02/14/2021 10:37 PM CDT Sexual Orientation Straight 02/14/2021 10 :37 PM CDT Occupation Industry Job Start Date Job End Date Not on file Not on file Not on file Not on file documented as of this encounter Plan of Treatment Not on file documented as of this encounter Procedures Procedure Name Priority Date/Time Associated Diagnosis Comments US OB UNDER 14 WEEKS W ENDOVAGINAL Schedule Routine, Read Routine (OP Routine) 06/07/2025 8:50 AM EDGE RUNNER Encounter to determine viability of , single or unspecified fetus documented in this encounter Results * US Ob Under 14 Weeks W Endovaginal (06/07/2025 8:50 AM EDGE RUNNER) Anatomical Region Laterality Modality Abdomen N/A Ultrasound us Alaina Teague DO IMG OB US PROCEDURES Fi nal Result documented in this encounter Visit Diagnoses Diagnosis Encounter to determine viability of , single or unspecified fetus documented in this encounter Care Teams Meterman Relationship Specialty Start Date End Date Unknown, Notinfile PCP - General 04/23/25 Alaina Teague DO [address] [place], [place] [address] Consulting Physician Obstetrics and Gynecology 02/08/21 documented as of this encounter
--- OUTSIDE RECORDS SUMMARY | 2025-06-09 12:29 | XMS_ITS | Patient Health Record ---
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 Plan Of Treatment Pending Test Test Name Order Date Test, Urine 04/10/2017 CBC With Differential/Platelet 7 DME_AFO (ankle foot orthosis) 07/25/2017 Insurance Providers Payer Name Payer Address Payer Phone Subscriber Number Group Number Insured Name Patient Relationship to Insured Coverage Start Date Coverage End Date [facility] Choice Plus [address] [place] [phone] [id number] Sandra Contreras Self - patient is the insured Medical (General) History Medical History History ICD Code Back pain Numbness in hands/feet Disc degeneration Herniated disc Denies h/o emotional/psychiatric disorde r Surgical History Surgery Date(Month/Year) Low back fusion 2004 Low back 2010 Stomach 2010 L3-5 LDL with disc L4-5 2017
--- OUTSIDE RECORDS SUMMARY | 2025-06-09 12:29 | XMS_ITS | Clinical Summary ---
Author Organization [facility] Address [address] [place] [address] Care Team Providers Care Collections Rep Name Role Phone Unavailable Primary Care Provider Unavailabl e Allergies No known active allergies Medications FLUoxetine (PROzac) 20 mg capsule Take 1 Capsule by mouth daily. 03/22/2025 Active PNV/iron/omega3 /folic ac/f.a.1 (PRE-NICKY MULTIVITAMINS/M INERALS ORAL) Take by mouth. Active Active Problems No known active problems Encounters Date Type Department Care Team Description 06/08/2025 Orders Only [facility] - [place] [address] [place] [address] Angel Kennedy MD 06/01/2025 External Device Data STL ABSTRACTION Provider, Abstract 06/01/2025 Orders Only [facility] - [place] [address] [place] [address] Angel Kennedy MD 05/27/2025 4:30 PM FLIGHT DECK OFFICER Telephone Check Up [facility] - [place] [address] [place] [address] Angel Kennedy MD Iron overload (Primary Dx) 05/04/2025 External Device Data STL ABSTRACTION Provider, Abstract 05/04/2025 External Device Data STL ABSTRACTION Provider, Abstract 05/04/2025 External Device Data STL ABSTRACTION Provider, Abstract 04/29/2025 10:30 AM FLIGHT DECK OFFICER Office Visit [facility] - [place] [address] [place] [address] Helena Brian MD Anemia affecting [...] Comments Blood Pressure 107/72 04/29/2025 10:11 AM FLIGHT DECK OFFICER Pulse 83 04/29/2025 10:11 AM FLIGHT DECK OFFICER Temperature 37.1 C (98.8 F) 04/29/2025 10:11 AM FLIGHT DECK OFFICER Respiratory Rate 15 04/29/2025 10:11 AM FLIGHT DECK OFFICER Oxygen Saturation 98% 04/29/2025 10:11 AM FLIGHT DECK OFFICER Inhaled Oxygen Concentration - - Weight 67 kg (147 lb 12.8 oz) 04/29/2025 10:11 A M FLIGHT DECK OFFICER Height 167.6 cm (5' 6) 04/29/2025 10:11 AM FLIGHT DECK OFFICER Body Mass Index 23.86 04/29/2025 10:11 AM FLIGHT DECK OFFICER Plan of Treatment Upcoming Encounters Date Type Department Care Team (Late st Contact Info) Description 06/16/2025 1:00 PM FLIGHT DECK OFFICER Office Visit [facility] - [place] [address] [facility] [address] [place] [address] Angel Kennedy MD [address] [facility] [address] [place] [address] Health Maintenance Due Date Last [...] DNA MUTATION ANALYSIS Routine 05/31/2025 2:39 PM FLIGHT DECK OFFICER IRON, TIBC, AND PERCENT SATURATION Routine 05/31/2025 7:45 AM FLIGHT DECK OFFICER COMPREHENSIVE METABOLIC PANEL Routine 05/31/2025 7:44 AM FLIGHT DECK OFFICER CBC WITH AUTODIFFERENTIAL Routine 2024 7:42 AM FLIGHT DECK OFFICER from Last 3 Months Results * HEREDITARY HEMOCHROMATOSIS DNA MUTATION ANALYSIS (05/31/2025 2:39 PM FLIGHT DECK OFFICER) us Angel Kennedy MD CHEMISTRY ORDERABLES COM Final Result * IRON, TIBC, AND PERCENT SATURATION (05/31/2025 7:45 AM FLIGHT DECK OFFICER) Blood us Angel Kennedy MD CHEMISTRY ORDERABLES Final Resu lt * COMPREHENSIVE METABOLIC PANEL (05/31/2025 7:44 AM FLIGHT DECK OFFICER) Blood us Angel Kennedy MD CHEMISTRY ORDERABLES Final Resu lt * CBC WITH AUTODIFFERENTIAL (05/31/2025 7:42 AM FLIGHT DECK OFFICER) Blood us Angel Kennedy MD HEMATOLOGY ORDERABLES Final Res ult from Last 3 Months Insurance [facility] [id number]
--- OUTSIDE RECORDS SUMMARY | 2025-06-09 12:29 | XMS_ITS | Encounter Summary ---
Author Organization [facility] Address [address] [place] [address] Care Team Providers Care Parts Interpreter Name Role Phone Alaina Teague DO Unavailable [phone] Unknown, Notinfile Primary Care Provider Unavail able Encounter Details Date Type Department Care Team (Late Contact Info) Description 06/08/2025 Results Follow-Up [facility] [address] [place] [address] Alaina Teague DO [address] [place] [address] Pap and High Risk HPV and Genotyping (Cytology Component) Social History Tobacco Use Types Packs/Day Years [...] on file Legal Sex Female 10:37 AM CASING BUILDER Gender Identity Female 02/14/2021 10:37 PM CDT Sexual Orientation Straight 02/14/2021 10 :37 PM CDT Occupation Industry Job Start Date Job End Date Not on file Not on file Not on file Not on file documented as of this encounter Ordered Prescriptions Prescription Sig Dispense Quantity Refills Last Filled Start Date End Date fluconazole (DIFLUCAN) 150 mg tablet Take 1 tablet (150 mg total) by mouth once for 1 dose 1 tablet 06/08/2025 06/08/2025 documented in this encounter Miscellaneous Notes * Telephone Encounter - Kasey Allen LPN - 06/09/2025 9:02 AM CASING BUILDER Pt aware. NG BUILDER documented in this encounter Plan of Treatment Not on file documented as of this encounter Visit Diagnoses Not on filedocumented in this encounter Care Teams Parts Interpreter Relationship Specialty Start Date End Date Unknown, Notinfile PCP - General 04/23/25 Alaina Teague DO [address] [place], [place] [address] Consulting Physician Obstetrics and Gynecology 02/08/21 documented as of this encounter
== END 2025-06-09 12:26 | disposition home or self-care (01) ==
PROVIDERS: PCP Nurse Practitioner Family; Visit Provider Obstetrics & Gynecology Obstetrics
DX: Z34.01 Encounter for supervision of normal first pregnancy, first trimester (principal)
CPT/HCPCS: 81420